=== PATIENT | female | born 1950 | race Caucasian/White ===

== ENCOUNTER → 2020-03-25 10:58 | Outpatient (REF) | payer MEDICARE, SELFPAY | LOC: HO.SL 10:58 | PROVIDERS: PCP Internal Medicine Medical Oncology; Visit Provider Internal Medicine Medical Oncology | DX: G47.10 Hypersomnia, unspecified (principal); R06.83 Snoring; R53.83 Other fatigue | CPT/HCPCS: 95806 ==

== ENCOUNTER → 2020-04-06 09:48 | Outpatient (BNVA) | payer MEDICARE, SELFPAY | PROVIDERS: PCP Internal Medicine Medical Oncology; Visit Provider Internal Medicine | DX: G47.33 Obstructive sleep apnea (adult) (pediatric) (principal) | CPT/HCPCS: 99202 ==

== ENCOUNTER → 2020-05-18 09:54 | Outpatient (BNVA) | payer MEDICARE, SELFPAY | PROVIDERS: PCP Internal Medicine Medical Oncology; Visit Provider Internal Medicine | DX: G47.33 Obstructive sleep apnea (adult) (pediatric) (principal); M26.19 Other specified anomalies of jaw-cranial base relationship; T78.3XXA Angioneurotic edema, initial encounter | CPT/HCPCS: 99212 ==

== ENCOUNTER 2020-05-27 16:31 | Outpatient (REF) | payer MEDICARE, SELFPAY | END 2020-05-27 16:32 | disposition home or self-care (01) | LOC: HO.LNP 16:31 | PROVIDERS: Visit Provider Internal Medicine Medical Oncology | DX: R07.0 Pain in throat (principal) | CPT/HCPCS: 87071 ==

== ENCOUNTER 2020-07-16 11:10 | Outpatient (REF) | payer MEDICARE, SELFPAY ==
[2020-07-16 11:41] LABS: Glucose Urine UA NEG (NEG); Leukocyte Esterase Urine 2+ (NEG); Nitrite Urine POS (NEG); Urine Blood 3+ (NEG); Urine Ketones NEG (NEG); Urine Protein TRACE MG/DL (NEG-TRACE)
[2020-07-16 11:46] LABS: Appearance Urine HAZY; Color Urine YELLOW
[2020-07-16 12:06] LABS: Bacteria Urine 1+ /LPF; Squamous Epithelial Cell Urine TRACE /LPF
== END 2020-07-16 11:11 | disposition home or self-care (01) ==
LOC: HO.LNP 11:10
PROVIDERS: Visit Provider Internal Medicine Medical Oncology
DX: N39.0 Urinary tract infection, site not specified (principal)
CPT/HCPCS: 81001; 87086

== ENCOUNTER 2020-08-08 13:13 | Emergency (ER) | payer MEDICARE, SELFPAY ==
[2020-08-08 14:00] VITALS: BP 142/65; PULSE 48; RESP 18; TEMP 36.6; O2SAT 100; BMI 20.1
--- NOTE | 2020-08-08 14:57 | ED.WOUNDLAC ---
HPI - Wound/Laceration General Chief Complaint: Wound/Laceration Stated Complaint: wound Time Seen by Provider: 08/08/20 14:57 History of Present Illness HPI narrative: Patient complains of cut to right pinky finger on a kitchen Skip, no numbness weakness or tingling Related Data Home Medications Medication Instructions Recorded Confirmed escitalopram oxalate 5 mg tablet 5 mg PO DAILY 04/06/20 methylphenidate HCl 20 mg tablet 10 mg PO TID 04/06/20 valacyclovir 500 mg tablet mg PO 04/06/20 Allergies Allergy/AdvReac Type Severity Reaction Status Date / Time Dust Allergy Unknown sneeze Uncoded 08/08/20 14:03 Enviornmental Allergy Unknown sneeze Uncoded 08/08/20 14:03 Review of Systems Review of Systems: Positive for right pinky laceration Negatives are no fever no chills no dizziness no fainting no numbness weakness or tingling no joint pains Yes all other systems are reviewed and are negative PMFSH Past Medical History Source: nursing notes reviewed Medical History (Updated 08/08/20 @ 16:37 by ELADIO Marquez) Angioneurotic edema LUCILLE (obstructive sleep apnea) Social History Social History Advance Directives: Yes Advance Directives Information Provided: Yes Advance Directives on File: No Physical Exam Vital Signs: Vital Signs: Last Vital Signs Temp 98 F 08/08/20 14:00 Pulse 55 08/08/20 15:03 Resp 14 08/08/20 15:03 BP 142/65 H 08/08/20 14:00 Pulse Ox 99 08/08/20 15:03 Body Mass Index 20.1 General appearance is no acute distress Head is normocephalic atraumatic Neck is supple Respiratory no distress Extremities the right pinky has a flap laceration that is 2 cm on the distal phalanx of the right pinky, sensation and motor function are normal, flexion and extension are normal no evidence of a tendon deficit, neurovascular intact Other extremities normal Neuro no gross motor or sensory deficits Course Course Course Narrative: Procedure note right 5th finger is cleansed and irrigated with normal saline Anesthesia is 6 cc of 1% lidocaine digital block No foreign body identified The wound is closed with 5 0 nylon sutures, 5 sutures Bleeding is controlled and dressing is applied Discharge Plan Discharge Clinical Impression: Laceration Patient Disposition: Home, Self-Care Additional Instructions: Stitches need to be removed in 7-10 days Return any time for redness swelling fever pain any sign of infection or any concerns You get a tetanus shot today Prescriptions: No Action valacyclovir 500 mg tablet PO RF: 0 methylphenidate HCl 20 mg tablet 10 mg PO TID RF: 0 escitalopram oxalate 5 mg tablet 5 mg PO DAILY RF: 0
[2020-08-08 15:03] VITALS: PULSE 55; RESP 14; O2SAT 99
[2020-08-08] MEDS: Diphth,Pertus(ACell),Tet Adult 0.5 ML SYRINGE IM (15:07)
[2020-08-08] MEDS: Lidocaine HCl 1 % MPF 5 ML VIAL SUBCUT ×2 (15:08)
== END 2020-08-08 16:56 | disposition home or self-care (01) ==
PROVIDERS: Emergency Provider Emergency Medicine
DX: S61.216A Laceration without foreign body of right little finger without damage to nail, initial encounter (principal); W27.8XXA Contact with other nonpowered hand tool, initial encounter; Y93.9 Activity, unspecified; Y92.9 Unspecified place or not applicable; Y99.9 Unspecified external cause status
CPT/HCPCS: 12001; 90471; 90715; 99283; 99284

== ENCOUNTER → 2020-09-06 14:26 | Outpatient (BNVA) | payer MEDICARE, SELFPAY | PROVIDERS: PCP Internal Medicine Medical Oncology; Visit Provider Internal Medicine | DX: G47.33 Obstructive sleep apnea (adult) (pediatric) (principal); G47.10 Hypersomnia, unspecified | CPT/HCPCS: 99212 ==

== ENCOUNTER → 2020-09-09 13:20 | Outpatient (BNVA) | payer MEDICARE, SELFPAY | PROVIDERS: PCP Internal Medicine Medical Oncology; Visit Provider Physician Assistant | DX: S46.219A Strain of muscle, fascia and tendon of other parts of biceps, unspecified arm, initial encounter (principal) | CPT/HCPCS: 99212 ==

== ENCOUNTER → 2020-09-23 12:50 | Outpatient (REF) | payer MEDICARE, SELFPAY | LOC: HO.SL 12:50 | PROVIDERS: Absent Provider Psychiatry & Neurology Psychiatry; PCP Internal Medicine Medical Oncology; Visit Provider Internal Medicine | DX: G47.10 Hypersomnia, unspecified (principal); G47.33 Obstructive sleep apnea (adult) (pediatric) | CPT/HCPCS: 95806 ==

== ENCOUNTER 2021-04-30 07:11 | Outpatient (REF) | payer MEDICARE, SELFPAY ==
[2021-04-30 08:43] LABS: Albumin Level 4.4 g/dL (3.5-5.0); Blood Urea Nitrogen 22 mg/dL (9-16); Calcium 11.1 mg/dL (8.4-10.2); Estimated Glomerular Filt Rate 56; Phosphorus 2.7 mg/dL (2.7-4.5)
[2021-04-30 08:52] LABS: Thyroid Stimulating Hormone 2.39 uIU/mL (0.32-4.0)
[2021-04-30 09:21] LABS: Vitamin D 25-OH Total 35.7 ng/mL (>30)
[2021-05-05 13:12] LABS: Calcium (PTHI) 10.9 mg/dL (8.6-10.4); PTHI 45 pg/mL (14-64)
== END 2021-04-30 07:12 | disposition home or self-care (01) ==
LOC: HO.LAB 07:11
PROVIDERS: Internal Medicine Endocrinology, Diabetes & Metabolism; Absent Provider Internal Medicine Medical Oncology; PCP Internal Medicine Medical Oncology; Visit Provider Internal Medicine Endocrinology, Diabetes & Metabolism
DX: E21.3 Hyperparathyroidism, unspecified (principal)
CPT/HCPCS: 36415; 82040; 82306; 82310; 82565; 83970; 84100; 84443; 84520

== ENCOUNTER → 2021-08-17 15:16 | Outpatient (BNVA) | payer MEDICARE, SELFPAY | PROVIDERS: PCP Internal Medicine Medical Oncology; Visit Provider Internal Medicine Endocrinology, Diabetes & Metabolism | DX: E21.0 Primary hyperparathyroidism (principal) | CPT/HCPCS: 99202 ==

== ENCOUNTER 2022-09-04 | Outpatient (REF) | payer MEDICARE, SELFPAY ==
[2022-09-04 16:52] LABS: CDiff Gene PCR NEGATIVE (Negative)
== END 2022-09-04 00:01 | disposition home or self-care (01) ==
LOC: HO.LAB
PROVIDERS: PCP Internal Medicine Medical Oncology; Visit Provider Internal Medicine Medical Oncology
DX: R19.7 Diarrhea, unspecified (principal)
CPT/HCPCS: 87177; 87209; 87493

== ENCOUNTER 2022-09-05 09:15 | Outpatient (REF) | payer MEDICARE, SELFPAY ==
[2022-09-05 11:24] LABS: Campylobacter Not Detected (Not Detect.); Plesiomonas shigelloides Not Detected (Not Detect.); Salmonella Not Detected (Not Detect.); Vibrio Not Detected (Not Detect.)
[2022-09-05 11:25] LABS: Adenovirus F 40/41 Not Detected (Not Detect.); Astrovirus Not Detected (Not Detect.); Cryptosporidium Not Detected (Not Detect.); Cyclospora cayetanensis Not Detected (Not Detect.); E. coli EAEC Not Detected (Not Detect.); E. coli EPEC Not Detected (Not Detect.); E. coli ETEC Not Detected (Not Detect.); E. coli STEC Not Detected (Not Detect.); Entamoeba histolytica Not Detected (Not Detect.); Giardia lamblia Not Detected (Not Detect.); Norovirus GI/GII Not Detected (Not Detect.); Rotavirus A Not Detected (Not Detect.); Sapovirus Not Detected (Not Detect.); Shigella sp./EIEC Not Detected (Not Detect.); Vibrio Cholerae Not Detected (Not Detect.); Yersinia enterocolitica Not Detected (Not Detect.)
== END 2022-09-05 09:16 | disposition home or self-care (01) ==
LOC: HO.LNP 09:15
PROVIDERS: Visit Provider Internal Medicine Medical Oncology
DX: R19.7 Diarrhea, unspecified (principal)
CPT/HCPCS: 87177; 87209; 87507

== ENCOUNTER 2022-09-11 14:00 | Outpatient (REF) | payer MEDICARE, SELFPAY ==
[2022-09-11 14:12] LABS: MANUAL DIFF FLAG NO
[2022-09-11 14:26] LABS: Basophils Percent Auto 0.4 % (0-2); Eosinophils Percent Auto 0.3 % (0-4); Hematocrit 43.6 % (37.0-47.0); Hemoglobin 14.3 g/dl (12.0-16.0); Imm Gran Abs Auto 0.02 X10*3/uL (0.00-0.03); Imm Gran Pct Auto 0.3 % (0.0-0.4); Lymphocytes Absolute Auto 1.9 X10*3/uL (1.2-4.9); Lymphocytes Percent Auto 27.1 % (20-40); Mean Corpuscular HGB Conc 32.8 g/dl (31.0-35.0); Mean Corpuscular Volume 106.9 fL (80.0-98.0); Mean Platelet Volume 10.5 fL (9.4-12.3); Monocytes Absolute Auto 0.5 X10*3/uL (0.1-1.2); Monocytes Percent Auto 7.5 % (2-11); Neutrophils Absolute Auto 4.6 x10*3/uL (2.0-8.3); Neutrophils Percent Auto 64.4 % (45-73); Platelet Count 234 X10*3/uL (160-400); Red Blood Count 4.08 X10*6/uL (4.20-5.50); White Blood Count 7.2 X10*3/uL (4.8-10.8)
[2022-09-11 15:05] LABS: Alanine Aminotransferase 46 U/L (0-31); Albumin Level 4.3 g/dL (3.5-5.0); Alkaline Phosphatase 107 U/L (39-117); Aspartate Amino Transferase 45 U/L (5-31); Bilirubin Direct 0.1 mg/dL (0.0-0.5); Bilirubin Total 0.4 mg/dL (0.0-1.0); Total Protein 7.3 g/dL (6.5-8.0)
[2022-09-11 15:12] LABS: TSH reflex Free T4 1.71 uIU/mL (0.32-4.0)
== END 2022-09-11 14:01 | disposition home or self-care (01) ==
LOC: HO.LAB 14:00
PROVIDERS: PCP Internal Medicine Medical Oncology; Visit Provider Internal Medicine Gastroenterology
DX: R19.7 Diarrhea, unspecified (principal)
CPT/HCPCS: 36415; 80076; 84443; 85025

== ENCOUNTER 2022-10-04 09:13 | Outpatient (REF) | payer MEDICARE, SELFPAY ==
--- NOTE | ~2022-10-04 | US_ITS ---
EXAMINATION: US ABDOMEN COMPLETE CLINICAL INFORMATION: Abnormal results of liver function studies. COMPARISON: Ultrasound abdomen complete 12/12/2018. TECHNIQUE: Real-time imaging of the abdominal viscera. FINDINGS: PANCREAS: Normal. ABDOMINAL AORTA: The proximal, mid, and distal segments are normal in caliber. Mild atherosclerotic plaque is seen within the distal abdominal aorta. INFERIOR VENA CAVA: Visualized portions are normal. LIVER: Normal. The liver is normal in size. The liver contour is normal. Parenchymal echogenicity is normal. No focal hepatic lesion. There is no intrahepatic biliary duct dilatation seen. GALLBLADDER: Normal. The gallbladder is physiologically distended without evidence of stones, sludge, polyps, wall thickening or pericholecystic fluid. COMMON BILE DUCT: Normal in caliber measuring 0.3 cm in diameter. RIGHT KIDNEY: Normal. No hydronephrosis. No renal calculi or focal parenchymal lesions. The kidney measures 9.0 cm in maximum dimension. LEFT KIDNEY: Normal. No hydronephrosis. No renal calculi or focal parenchymal lesions. The kidney measures 9.7 cm in maximum dimension. SPLEEN: Normal. The spleen measures 7.0 cm in maximum dimension. FREE FLUID: None. US/US abdomen complete IMPRESSION: Mild atherosclerotic plaque is seen within the distal abdominal aorta. No other significant finding.
== END 2022-10-04 09:14 | disposition home or self-care (01) ==
LOC: HO.US 09:13
PROVIDERS: PCP Internal Medicine Medical Oncology; Visit Provider Internal Medicine Gastroenterology
DX: R94.5 Abnormal results of liver function studies (principal)
CPT/HCPCS: 76700

== ENCOUNTER 2022-10-25 12:09 | Day surgery (SDC) | payer MEDICARE, SELFPAY ==
--- NOTE | 2022-10-24 10:38 | HO.ANESPROP2 ---
Documented by User: Felicitas Everett NP 10/24/22 10:39 HPI - Anesthesia Eval Consult details Narrative: 72yo F for Colonoscopy PMFSH Active Problems Active Problems: All Active Problems (Updated 08/17/21 @ 15:32 by Berta Moore Vane) Biceps strain (Acute) Hypersomnolence (Acute) Angioneurotic edema (Acute) LUCILLE (obstructive sleep apnea) (Acute) Past Medical History Medical History Angioneurotic edema Hypersomnolence LUCILLE (obstructive sleep apnea) Family History Family History Mother Dementia Father Oral cancer Surgical History Surgical History History of parathyroid surgery Hx of cataract surgery Social History Social History Patient Tobacco Use Status: Never used Tobacco Advance Directives: No Advance Directives Information Provided: Yes Current occupational status: retired Current occupation: rt handed Meds Allergies Allergy/AdvReac Type Severity Reaction Status Date / Time No Known Drug Allergies Allergy Unknown Unknown Verified 08/17/21 15:41 Dust Allergy Unknown sneeze Uncoded 08/08/20 14:03 Enviornmental Allergy Unknown sneeze Uncoded 08/08/20 14:03 Home Medications Medication Instructions Recorded Confirmed Last Taken Type escitalopram oxalate 5 mg tablet 5 mg PO DAILY 04/06/20 Unknown History valacyclovir 500 mg tablet mg PO 04/06/20 Unknown History methylphenidate HCl 20 mg tablet mg PO 08/17/21 Unknown History Exam Exam Date and Time: October 24, 2022 1038 Assessment and Plan Assessment Anesthesia Assessment: Chart Reviewed Documented by User: Tiera Samuel MD 10/25/22 13:18 PMFSH Past Medical History Medical History Angioneurotic edema Hypersomnolence LUCILLE (obstructive sleep apnea) Family History Family History Mother Dementia Father Oral cancer Surgical History Surgical History History of parathyroid surgery Hx of cataract surgery History of Problems with Anesthesia: No Social History Social History Patient Tobacco Use Status: Never used Tobacco Advance Directives: No Advance Directives Information Provided: Yes Current occupational status: retired Current occupation: rt handed Meds Allergies Allergy/AdvReac Type Severity Reaction Status Date / Time No Known Drug Allergies Allergy Unknown Unknown Verified 08/17/21 15:41 Dust Allergy Unknown sneeze Uncoded 08/08/20 14:03 Enviornmental Allergy Unknown sneeze Uncoded 08/08/20 14:03 Home Medications Medication Instructions Recorded Confirmed Last Taken Type escitalopram oxalate 5 mg tablet 5 mg PO DAILY 04/06/20 Unknown History valacyclovir 500 mg tablet mg PO 04/06/20 Unknown History methylphenidate HCl 20 mg tablet mg PO 08/17/21 Unknown History Exam Airway Mallampati Class: II TM Dist: >3cm Neck ROM: Full Loose/Missing/Broken Teeth: No Heart: RRR Lungs: CTA Assessment and Plan Assessment Anesthesia Assessment: Anesthesia Plan Discussed Final Anesthetic Review History of Problems with Anesthesia: No NPO: Yes ASA Class: III Final Preanesthetic Review: Meds/Allgs Chart Reviewed, Consent Obtained/Reviewed and Anes Risks/Benef Reviewed Patient Risk: Intermediate Procedure Risk: Low Anesthetic Plan Anesthetic Plan: MAC: Disposition: Standard PACU
[2022-10-25 13:14] VITALS: BMI 18.5
[2022-10-25 13:22] VITALS: BP 124/70; PULSE 58; RESP 16; TEMP 36.8; O2SAT 100
[2022-10-25] MEDS: Lactated Ringers 1,000 ML 100 ML IVCONT (13:39)
--- NOTE | 2022-10-25 13:52 | MHC.SHP ---
Pre-Procedural Eval Section A Date of Service: 10/25/22 Section B Chief Complaint: Diarrhea, unspecified Details of Present Illness: see H&P no changes Relevant Family History (Specify if Yes): No Relevant Social History: None Present Medications: see Short Stay Collaborative assessment Medical History: No relevant PMH History of Previous Operations: No relevant previous surgery Allergies: Allergies Allergy/AdvReac Type Severity Reaction Status Date / Time No Known Drug Allergies Allergy Unknown Unknown Verified 08/17/21 15:41 Dust Allergy Unknown sneeze Uncoded 08/08/20 14:03 Enviornmental Allergy Unknown sneeze Uncoded 08/08/20 14:03 Review of Systems Sugical H&P ROS: Negative: Constitution, Cardiovascular, Respiratory, Neurological, Psychiatric, Hem-Onc, Allergic/Immunologic, Gastrointestinal, Genitourinary, Musculoskeletal, Integumentary, Endocrine and Eyes/Ears/Nose/Throat Exam Surgical H&P Exam: Normal: HEENT, Normal: Heart, Normal: Lungs, Normal: Extremities, Normal: Abdomen, Normal: Skin and Normal: Neurological Plan Diagnosis/Plan: Unchanged I have reviewed the history and physical and performed a pertinent physical examination on my patient. No changes have occurred unless specified. Time Spent With Patient Time: Total time managing care of this patient today ____ minutes.
[2022-10-25 14:40] VITALS: BP 95/60; PULSE 52; RESP 16; TEMP 36.2; O2SAT 100
--- NOTE | 2022-10-25 14:44 | P.BOP_ITS ---
Brief Operative Note Date of Service: 10/25/22 Pre-op diagnosis: diarrhea Post-op diagnosis: same Surgeon: Oz Fitzpatrick Anesthesia: MAC Was an Structural Steel Erection Supervisor used for this Procedure?: No Estimated blood loss (mL): 3 Pathology: other Condition: stable Disposition: PACU
[2022-10-25 14:55] VITALS: BP 119/65; PULSE 51; RESP 18; TEMP 36.8; O2SAT 98
--- NOTE | 2022-10-25 17:38 | OP_ITS ---
DATE OF SERVICE: 10/25/2022 SURGEON: Oz Fitzpatrick MD INDICATIONS: Diarrhea. PREOPERATIVE DIAGNOSIS: POSTOPERATIVE DIAGNOSIS: PROCEDURE PERFORMED: ESTIMATED BLOOD LOSS: COMPLICATIONS: ANESTHESIA: ASSISTANTS: SPECIMENS: PROCEDURE: Colonoscopy to the terminal ileum with biopsy. MEDICATIONS: Monitored anesthesia care. DESCRIPTION OF PROCEDURE: A history and physical was performed. The risks and benefits of the procedure were explained to the patient. Informed consent was obtained. The patient was placed in the left lateral decubitus position. A digital rectal exam was performed and was found to be normal. The Olympus pediatric video colonoscope was introduced into the rectum and advanced to the cecum. The cecum was identified by transillumination, palpation, and identification of ileocecal valve. Examination was performed. The scope was removed. She tolerated the procedure well and was returned to recovery area in stable condition. FINDINGS: The terminal ileum was briefly examined and appeared normal. Biopsies were obtained. The visualized colonic mucosa was within normal limits without evidence of masses, ulcers, or polyps. There was some liquid stool, which was washed and suctioned as best possible. This limited the sensitivity examination for detection of small polyps. No polyps were identified. There was no evidence of colitis. Biopsies were obtained from the terminal ileum, right colon and sigmoid. Retroflexed examination showed moderate-sized internal hemorrhoids. IMPRESSION: Normal colonoscopy. RECOMMENDATIONS: 1. Follow up the biopsy results. 2. Repeat colonoscopy is recommended in 10 years for average risk individuals. This is optional based on age. MD CHONG Gant/ARISTEO / [id number]
== END 2022-10-25 15:15 | disposition home or self-care (01) ==
PROVIDERS: PCP Internal Medicine Medical Oncology; Visit Provider Internal Medicine Gastroenterology
PROC: 0DJD8ZZ Inspection of Lower Intestinal Tract, Via Natural or Artificial Opening Endoscopic (ICD-10-PCS; CPT 45378; principal; 2022-10-25 13:30)
DX: K52.831 Collagenous colitis (principal); R53.83 Other fatigue; N32.89 Other specified disorders of bladder; G47.33 Obstructive sleep apnea (adult) (pediatric); Z79.899 Other long term (current) drug therapy
CPT/HCPCS: 45380; 88305

== ENCOUNTER 2023-09-04 13:39 | Outpatient (REF) | payer MEDICARE, SELFPAY ==
--- NOTE | ~2023-09-04 | MM_ITS ---
EXAMINATION: BONE DENSITOMETRY CLINICAL INDICATION: Age-related osteoporosis without current pathological fracture. COMPARISON: Baseline BD dated 01/27/2009. TECHNIQUE: Using a DreamFace Interactive DXA System (software version: 13.1) manufactured by [employer], dual-energy x-ray absorptiometry was performed of the lumbar spine and left hip. The images are of good technical quality. Summary results are attached. FINDINGS: LEFT FEMUR, NECK: Current: BMD 0.776 g/cm2, Z-score -0.1, T-score -1.9, osteopenia. Baseline: BMD 0.940 g/cm2. LEFT FEMUR, TOTAL: Current: BMD 0.814 g/cm2, Z-score 0.0, T-score -1.5, osteopenia, 17.7% decrease from baseline (<5% change is not significant). Baseline: BMD 0.989 g/cm2. AP SPINE L1-L4: Current: BMD 1.096 g/cm2, Z-score 1.0, T-score -0.7, normal, 6.6% decrease from baseline (<5% change is not significant). Baseline: BMD 1.173 g/cm2. IDENTIFIED RISK FACTORS: Menopause. HISTORY OF FRACTURE: None listed. MEDICATIONS: Multivitamin. MM/XR DEXA axial skeleton IMPRESSION: 1. DIAGNOSIS: Osteopenia based on the lowest T-score value of -1.9 in the femoral neck applying World Health Organization criteria. 2. 10-YEAR FRACTURE RISK PREDICTION, FRAX: Major osteoporotic fracture (clinical spine, forearm, hip or shoulder) 10.9%. Hip fracture 2.2%. 3. Treatment Recommendations: NOF guidelines recommend consideration for treatment in postmenopausal women and men age 50 and older presenting with the following: -A hip or vertebral (clinical or morphometric) fracture. -T-score less than or equal to -2.5 at the femoral neck or spine after appropriate evaluation to exclude secondary causes. -Low bone mass at the hip or spine and a 10-year fracture probability by FRAX of greater than or equal to 3% for hip fracture or greater than or equal to 20% for major osteoporotic fracture based on the [place] adapted WHO algorithm. 4. Other Recommendations: All treatment decisions require clinical judgment and consideration of individual patient factors, including patient preferences, comorbidities, previous drug use, risk factors not captured in the FRAX model (e.g. frailty, falls, vitamin D deficiency, increased bone turnover, interval significant decline in bone density) and possible under or overestimation of fracture risk by FRAX. Additional medical evaluation for secondary cause of low bone mineral density may be appropriate. FUTURE SCAN RECOMMENDATION: People with diagnosed cases of osteoporosis or at high risk for fracture should have regular bone mineral density tests. For patients eligible for Medicare, routine testing is allowed once every 2 years. The testing frequency can be increased to one year for patients who have rapidly progressing disease, those who are receiving or discontinuing medical therapy to restore bone mass, or have additional risk factors.
== END 2023-09-04 13:40 | disposition home or self-care (01) ==
LOC: HO.MAMMO 13:39
PROVIDERS: PCP Internal Medicine Medical Oncology; Visit Provider Internal Medicine Medical Oncology
DX: M81.0 Age-related osteoporosis without current pathological fracture (principal); Z78.0 Asymptomatic menopausal state
CPT/HCPCS: 77080

== ENCOUNTER 2024-05-12 12:19 | Outpatient (REF) | payer MEDICARE, SELFPAY ==
[2024-05-12 13:09] LABS: MANUAL DIFF FLAG NO
[2024-05-12 13:15] LABS: Basophils Percent Auto 0.5 % (0-2); Eosinophils Percent Auto 0.5 % (0-4); Hematocrit 41.6 % (37.0-47.0); Hemoglobin 14.2 g/dl (12.0-16.0); Imm Gran Abs Auto 0.01 X10*3/uL (0.00-0.03); Imm Gran Pct Auto 0.2 % (0.0-0.4); Immature Retic Fraction 11.7 % (3.0-15.9); Lymphocytes Absolute Auto 1.8 X10*3/uL (1.2-4.9); Lymphocytes Percent Auto 30.1 % (20-40); Mean Corpuscular HGB Conc 34.1 g/dl (31.0-35.0); Mean Corpuscular Hemoglobin 36.7 pg (27.0-33.0); Mean Corpuscular Volume 107.5 fL (80.0-98.0); Mean Platelet Volume 11.2 fL (9.4-12.3); Monocytes Absolute Auto 0.5 X10*3/uL (0.1-1.2); Monocytes Percent Auto 8.3 % (2-11); Neutrophils Absolute Auto 3.7 x10*3/uL (2.0-8.3); Neutrophils Percent Auto 60.4 % (45-73); Platelet Count 196 X10*3/uL (160-400); Red Blood Count 3.87 X10*6/uL (4.20-5.50); Red Cell Distribution Width 13.3 % (11.0-16.0); Retic HGB Equivalent 38.4 pg (30.0-35.0); Reticulocyte Percent 1.6 % (0.5-1.8); Reticulocytes Absolute 0.064 X10*6/uL (0.026-0.095); White Blood Count 6.1 X10*3/uL (4.8-10.8)
[2024-05-12 13:28] LABS: Alanine Aminotransferase 60 U/L (0-31); Albumin Level 4.5 g/dL (3.5-5.0); Alkaline Phosphatase 74 U/L (39-117); Anion Gap 10 (12-20); Aspartate Amino Transferase 62 U/L (5-31); Bilirubin Total 0.4 mg/dL (0.0-1.0); Blood Urea Nitrogen 23 mg/dL (9-16); Calcium 9.3 mg/dL (8.4-10.2); Carbon Dioxide 30 mmol/L (22-29); Chloride 101 mmol/L (96-108); Estimated Glomerular Filt Rate 56; Glucose Random 90 mg/dL (60-115); Potassium 3.4 mmol/L (3.3-5.1); Sodium 138 mmol/L (135-145); Total Protein 7.5 g/dL (6.5-8.0)
[2024-05-12 14:01] LABS: Folate 19.3 ng/mL (> or = 4.0)
== END 2024-05-12 12:20 | disposition home or self-care (01) ==
LOC: HO.10HDL 12:19
PROVIDERS: Visit Provider Internal Medicine Medical Oncology
DX: R63.6 Underweight (principal); R53.82 Chronic fatigue, unspecified; D75.89 Other specified diseases of blood and blood-forming organs
CPT/HCPCS: 36415; 80053; 82746; 85025; 85045

== ENCOUNTER → 2024-07-08 08:17 | Outpatient (RCR) | payer MEDICARE, SELFPAY ==
--- NOTE | 2019-11-28 10:41 | MHC.PT.DC ---
[facility] [place] [facility] [place] [facility] [place] Office [address] Brianda Treviño [address] [phone] F: [phone] F: [phone] F: [phone] F: [phone] Physical Therapy Discharge Report Diagnosis: Tendinitis of R rotator cuff Date of Surgery: NA Date of Evaluation: 10/14/19 Date of Discharge: 11/28/19 Treatments to Date: 14 Cancellations to Date: 0 No Shows to Date: 0 Discharge Status: Achieved Goals Improved Function Independent with HEP Discharge Summary: Patient has been doing well, very I in her HEP. She reports ready for DC next session. Does not have any increase in pain with exercises. Demos an improvement in posture and scapular stability and awareness. She demos WFL shoulder ROM and strength. R shoulder AROM: flexion 165, abduction 175, ER 80 degs in 90 degs abduction, IR 80 degs in 90 degs abduction. SPADI improved o 14/50 on pain scale and 2/80 on disability. DC to HEP. Please sign and return to therapist. Thank you for your referral.
== END | disposition home or self-care (01) ==
LOC: HO.PTCHIC 11-21 10:02
PROVIDERS: PCP Internal Medicine Medical Oncology; Visit Provider Physician Assistant
DX: M75.81 Other shoulder lesions, right shoulder (principal)
CPT/HCPCS: 97110

== ENCOUNTER 2025-01-13 14:31 | Outpatient (AMB) | payer MEDICARE, SELFPAY ==
--- OUTSIDE RECORDS SUMMARY | 2023-07-26 05:00 | XMS_ITS ---
Author Organization Harvinder Moscoso III, MD Address [address] [place] [address] Care Team Providers Care Lump Inspector Name Role Phone Dr. Harvinder Moscoso III Primary Care Provider Allergies Allergen (clinical drug ingredient) Drug/Non Drug Allergy documented on EMR Reaction Allergy Type Onset Date Status Dust Mites Unknown Allergy Active REASON FOR VISIT Macrocytosis, Hyperlipidemia, Underweight, Depression, Hyper parathyroidism, Sleep apnea, Osteoporosis Medications Medication SIG (Take, Route, Fr equency, Duration) Notes Start Date End Date Status Calcium 1 tab Oral Active valACYclovir HCl 500 MG 1 tablet Orally Once a day 05/09/2022 Active Social History Tobacco Use: Social History Observation Description Date Details (start date - stop date) Former Smoker NA - NA Sex Assigned At : Social History Observation Description Sex Assigned At Female Tobacco Use/Smoking Question Answer Notes Patient is a former smoker How long has it been since you last smoked? > 10 years Additional Findings: Tobacco Non-User Ex-cigaret te smoker Problems Problem Type SNOMED Code ICD Code Onset Dates Problem Status W/U Status Risk Notes Problem Osteoporosis (27562049) Osteoporosis, unspecified (M81.0) Active confirmed She is being treated. A bone density test will be done periodical ly. Vital Signs Temperature 97.2 degrees Fahrenheit 07/26/19 24 Blood pressure systolic 133 mm Hg 07/26/19 24 Blood pressure diastolic 73 mm Hg 024 Heart Rate 63 /min 07/26/2023 Height 67 in 07/26/2023 Weight 120 lbs 07/26/2023 BMI 18.79 kg/m2 07/26/2023 Encounters Encounter Location Date Provider Diagnosis Harvinder Moscoso III, MD [address] [place] [address] [place] [address] 07/26/2023 Harvinder Moscoso Underweight R63.6 ; Hyperparathyroidism E21.3 ; Osteoporosis, unspecified M81.0 ; Cervical nerve root impingement G54.2 ; Chronic insomnia F51.04 ; Macrocytosis D75.89 ; Allergic rhinitis, unspecified J30.9 and Former smoker Z87.891 Assessments Encounter Date Diagnosis (ICD Code) Assessment Notes T reatment Notes Treatment Clinical Notes 07/26/2023 Underweight (ICD-10 - R63.6) She has gained 2 pounds. Her nutritional status is good. She reports a good appetite. I urged her to continue the weight gain until about a mass index is 20. 07/26/2023 Hyperparathyroidism (ICD-10 - E21.3) No blood work is available. She is asymptomatic. She remains under the care of endocrinology. 07/26/2023 Osteoporosis, unspec ified (ICD-10 - M81.0) She has been compliant with her regimen and denies bone pain. Her bone density is being done periodically. 07/26/2023 Cervical nerve root impingement (ICD-10 - G54.2) She denies any recent neck pain and is doing quite well. She has occasional pain with turning her neck but no radiation. Observation continues. 07/26/2023 Chronic insomnia (IC D-10 - F51.04) He wondered if medication would help and I suggested either tramadol or an antihistamine. She said she would consider these. In general, her insomnia has improved. 07/26/2023 Macrocytosis (ICD-10 - D75.89) A CBC has been ordered prior to her next visit. 07/26/2023 Allergic rhinitis, unspecified (ICD-10 - J30.9) Her rhinitis has been stable and well controlled with occasional use a medication. She has had no complaints about this since last spring. 07/26/2023 Former smoker (ICD-1 0 - Z87.891) She is highly motivated not to smoke and she has a plan for prevention of relapse in times of illness or stress. Plan Of Treatment Medication Medication Name Sig Start Date Stop Date Notes Calcium 1 tab Oral valACYclovir HCl 500 MG 1 tablet Orally Once a day 023 Pending Test Test Name Order Date PROFILE, FASTING (COMPREHENSIVE METABOLI C) 07/26/2023 CBC WITH AUTO DIFF 07/26/2023 Lipid Panel 07/26/2023 Parathyroid Hormone Intact 07/26/2023 Next Appt Details Follow Up: As Scheduled, Casandra son: OV, Annual Exam Provider Name:Harvinder Moscoso , 11/24/2025 02:00:00 PM, [address] [place] [address], [address], [id number], Progress Notes * BELLANicoleOB:1950 (73 yo F)Acc No.[id number]:07/26/2023 Progress Notes Patient: Jess Bernal Provider: Patti Moscoso MD :1950 A ge:73 Y S ex:Female Date:07/26/2023 Address:[address] [place] [address] [id number] Subjective: * Chief Complaints: * M acrocytosisHyperlipidemiaUnderweightDepressionHyper parathyroidismSleep apneaOsteoporosis * HPI: C OVID-19 Screening: She returns for a scheduled visit to manage her health status in view of numerous medical issues. She has gained 2 pounds. Her nutritional status seems good. Her insomnia and chronic fatigue are improved. She has no new problems. There is no recent blood work available. Questions H ave you experienced fever, chills, cough, sore throat, shortness of breath, difficulty breathing, muscle aches, loss of taste or smell? N o H ave you been exposed to the virus within the last 10 days? N o H ave you travelled internationally in the last 10 days? N o H ave you been exposed to COVID-19 in the past? N o * ROS: G eneral/Constitutional: pain o nly normal aches and pains. C hills d enies.?Fatigue a dmits. F ever d enies. E NT: Decreased hearing d enies. R espiratory: Cough d enies. C ardiovascular: Chest pain with exertion d enies. D yspnea on exertion?denies. S hortness of breath d enies. G astrointestinal: Constipation o ccasional. D ecreased appetite d enies. D iarrhea d enies. H eartburn d enies. N ausea d enies. R ectal bleeding d enies. V omiting d enies. H ematology: bruising d enies. p etechiae d enies. S wollen glands n one have been noted. G enitourinary: Frequent urination a t night. M usculoskeletal: Muscle aches d enies. P ainful joints d enies. S ciatica d enies. W eakness d enies. S kin: Itching d enies. R aurora d enies. S kin lesion(s)?denies. N eurologic: Difficulty speaking d enies. D izziness d enies.?Headache d enies. L ow back pain d enies. P sychiatric: Depressed mood d enies. * Medical History: * Surgical History: E xcision of 2cm lipoma, right flank [id number] x2 [id number] 10/25/22 * Hospitalization/Major Diagno stic Procedure: D enies Past Hospitalization * Family History: F ather: 85 yrs, mouth cancer. M other: 90 yrs, alzheimer. M aternal aunt: 80 yrs, breast cancer. 1 sister(s) - healthy. . She has no children. * Social History: T obacco Use: T obacco Use/Smoking P atient is a f ormer smoker H ow long has it been since you last smoked??> 10 years A dditional Findings: Tobacco Non-User E x-cigarette smoker S he was born in [place], [place]. 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 * Medications: T akingCalcium 1 tab Oral valACYclovir HCl 500 MG Tablet 1 tablet Orally Once a day, stop date 05/05/2024Medication List reviewed and reconciled with the patientTaking Calcium 1 tab Oral Taking valACYclovir HCl 500 MG Tablet 1 tablet Orally Once a day, stop date 05/05/2024Medication List reviewed and reconciled with the patient * Allergies: D ust Mitesno[Allergies Verified] Objective: * Vitals: H t: 67, Wt:120, BMI:18.79, BP:133/73, HR:63, Temp:97.2, Wt-k.43. * Examination: G eneral Examination: GENERAL APPEARANCE: p leasant, well nourished, well developed, in no acute distress, calm and relaxed , underweight , woman. HEAD: a traumatic, normocephalic. EYES: e kin, perrla, anicteric, conjugate. EARS: n ormal. NOSE: s eptum intact. ORAL CAVITY: n ormal, unremarkable. NECK/THYROID: n o jugular venous distention, no carotid bruit, thyroid Not palpable. LYMPH NODES: n o enlarged lymph nodes,spleen normal. SKIN: n o suspicious lesions, anicteric. HEART: n o clicks, gallops, murmurs, or rubs, regular rhythm, S1, S2 normal, no s3, or vascular bruits. LUNGS: c lear to auscultation . BREASTS: n ot examined. ABDOMEN: b owel sounds normal, no ascites, no organomegaly, no mass. RECTAL EXAM: n ot examined. MUSCULOSKELETAL: e xtremities unremarkable, no clubbing, cyanosis or edema. PERIPHERAL PULSES: n ormal. NEUROLOGIC: a lert and oriented, cranial nerves 2-12 grossly intact, deep tendon reflexes 2+ symmetrical, motor strength normal upper and lower extremities, sensory exam intact. PSYCH: a lert, oriented. Assessment: * Assessment: 1. U nderweight - R63.6 (Primary), She has gained 2 pounds. Her nutritional status is good. She reports a good appetite. I urged her to continue the weight gain until about a mass index is 20. 2. H yperparathyroidism - E21.3, No blood work is available. She is asymptomatic. She remains under the care of endocrinology. 3 . O steoporosis, unspecified - M81.0, She has been compliant with her regimen and denies bone pain. Her bone density is being done periodically. 4 .?Cervical nerve root impingement - G54.2, She denies any recent neck pain and is doing quite well. She has occasional pain with turning her neck but no radiation. Observation continues. 5 . C hronic insomnia - F51.04, He wondered if medication would help and I suggested either tramadol or an antihistamine. She said she would consider these. In general, her insomnia has improved. 6 .?Macrocytosis - D75.89, A CBC has been ordered prior to her next visit. 7 . A llergic rhinitis, unspecified - J30.9, Her rhinitis has been stable and well controlled with occasional use a medication. She has had no complaints about this since last spring. 8 . F ormer smoker - Z87.891, She is highly motivated not to smoke and she has a plan for prevention of relapse in times of illness or stress. Plan: * Treatment: 2. H yperparathyroidism L AB: PROFILE, FASTING (COMPREHENSIVE METABOLIC) L AB: CBC WITH AUTO DIFF L AB: Lipid Panel L AB: Parathyroid Hormone Intact 3. O steoporosis, unspecified I maging: BONE DENSITY DEXA 4. O thers Continue valACYclovir HCl Tablet, 500 MG, 1 tablet, Orally, Once a day; C ontinue Calcium, 1 tab, Oral. * Procedure Codes: * Preventive Medicine: Counseling: C are goal follow-up plan: Counseling for abnormal BMI given Y es Below Normal BMI Follow-up D ietary education for weight gain, Dietary management education, guidance, and counseling, Feeding regime, Lifestyle education regarding diet, Nutrition / feeding management, Prescribed diet education, Special diet education, Intervention, Order not done: Medical or Other reason not done S moking/Tobacco Use Patient counseled on the dangers of tobacco use and urged to quit. 0 07/26/2023 * Follow Up: A s Scheduled (Reason: OV, Annual Exam) * Images: * Sign off status: Completed true * Provider: Patti Moscoso MD Date: 0 07/26/2023 Generated for Mukund aguiar/Amy/eTransmitting on: 1 03/15/2024 06:25 PM EST History and Physical Notes * HPI (History of Present Illness) Category Sub-Category Detail Notes COVID-19 Screening Questions Have you had any new onset fever, chills, cough, congestion, sore throat, shortness of breath, muscle aches?: No Have you been exposed to the virus withi n the last 10 days?: No Have you travelled internationally in [facility] last 10 days?: No Have you been exposed to COVID-19 in the past?: No Examination Category Sub-Category Detail Notes General Examination GENERAL APPEARANCE: pleasant , well nourished, well developed, in no acute distress, calm and relaxed , underweight , woman HEAD: atraumatic, normocep halic EYES: eomi, perrla, anicte duran, conjugate EARS: normal NOSE: septum intact NECK/THYROID: no jugular venous di stention, no carotid bruit, thyroid Not palpable HEART: no clicks, gallops, murmurs, or rubs, regular rhythm, S1, S2 normal, no s3, or vascular bruits LUNGS: clear to auscultatio n ABDOMEN: bowel sounds normal, no ascites, no organomegaly, no mass NEUROLOGIC: alert and oriented, cranial nerves 2-12 grossly intact, deep tendon reflexes 2+ symmetrical, motor strength normal upper and lower extremities, sensory exam intact SKIN: no suspicious lesion s, anicteric PERIPHERAL PULSES: normal BREASTS: not examined MUSCULOSKELETAL: extremities unremark able, no clubbing, cyanosis or edema LYMPH NODES: no enlarged lymph no jorge a,spleen normal RECTAL EXAM: not examined PSYCH: alert, oriented ORAL CAVITY: normal, unremarkable
--- OUTSIDE RECORDS SUMMARY | 2023-11-20 09:00 | XMS_ITS ---
Author Organization Harvinder Moscoso III, MD Address [address] [place] [address] Care Team Providers Care Biodiesel Production Associate Name Role Phone Dr. Harvinder Moscoso III Primary Care Provider Allergies Allergen (clinical drug ingredient) Drug/Non Drug Allergy documented on EMR Reaction Allergy Type Onset Date Status Ragweed Unknown Allergy Active Dust Mites Unknown Allergy Active Grass Mix Pollens Allergen Ext Unknown Drug Allergy Active Results Component Value Reference Range Notes URINE DIP STICK Reviewed date:11/20/2023 03:05:17 PM Interpretation: Performing Lab: Notes/Report: SG 1.005 1.005 - 1.025 pH 7.0 5.0 - 9.0 LUIS MANUEL Negative Negative - NIT Negative Negative - PRO Negative Negative - Trace GLU Negative Negative - KET Negative Negative - UBG Negative 0.1 - 1.8 TYRESE Negative 0.2 - 1.3 BLD Negative Negative - REASON FOR VISIT Annual Exam Medications Medication SIG (Take, Route, Fr equency, Duration) Notes Start Date End Date Status valACYclovir HCl 500 MG 1 tablet Orally Once a day 05/09/2022 Active Multivitamin - 1 tablet Orally Once a day Active Calcium 1 tab Oral Active Social History Tobacco Use: Social History Observation Description Date Details (start date - stop date) Never Smoker NA - NA Sex Assigned At : Social History Observation Description Sex Assigned At Female Tobacco Use/Smoking Question Answer Notes Patient is a former smoker How long has it been since you last smoked? > 10 years Additional Findings: Tobacco Non-User Ex-cigaret te smoker Tobacco Control (Standard) Question Answer Notes Tobacco use: Nonsmoker Additional Findings: Tobacco non-user Aggressive nonsmoker AUDIT-C (Standard) Question Answer Notes Did you have a drink containing alcohol in the p ast year? No Points 0 Interpretation Negative Vital Signs Temperature 98.8 degrees Fahrenheit 11/20/19 24 Blood pressure systolic 115 mm Hg 11/20/19 24 Blood pressure diastolic 71 mm Hg 024 Heart Rate 77 /min 11/20/2023 Height 67 in 11/20/2023 Weight 120 lbs 11/20/2023 BMI 18.79 kg/m2 11/20/2023 Encounters Encounter Location Date Provider Diagnosis Harvinder Moscoso III, MD [address] [place] [address] [place] [address] 11/20/2023 Harvinder Moscoso Underweight R63.6 ; Chronic fatigue R53.82 ; Macrocytosis D75.89 ; Former smoker Z87.891 ; Chronic insomnia F51.04 ; Cervical nerve root impingement G54.2 ; Hypercalcemia E83.52 and Depression, unspecified depression type F32.9 Assessments Encounter Date Diagnosis (ICD Code) Assessment Notes Treatment Notes Treatment Clinical Notes 11/20/2023 Underweight (ICD-10 - R63.6) She remains under weight, but this is a stable ppattern for her. Nutritional status seems good. 11/20/2023 Chronic fatigue (ICD-10 - R53.82) Her blood woork shows no anemia. Renal function is normal. She continues to function well and life. 11/20/2023 Macrocytosis (ICD-10 - D75.89) Her mean cell volume is 107. Shortly before this, it was 1110. Review of the [place] [facility] [place] [facility] shows it to mean cell volume has been above normal as for back, just 2010. At that time it was 102. Observation will continue. 11/20/2023 Former smoker (ICD-10 - Z87.891) She is highly motivated not to smoke and she has a plan for prevention of relapse in times of illness or stress. 11/20/2023 Chronic insomnia (ICD-10 - F51.04) He wondered if medication would help and I suggested either tramadol or an antihistamine. She said she would consider these. In general, her insomnia has improved. 11/20/2023 Cervical nerve root impingement (ICD-10 - G54.2) She denies any recent neck pain and is doing quite well. She has occasional pain with turning her neck but no radiation. Observation continues. 11/20/2023 Hypercalcemia (ICD-10 - E83.52) Her calcium has returned to normal with parathyroid surgery. She will continue on replacement. 11/20/2023 Depression, unspecified depression type (ICD-10 - F32.9) There is no sign of depression on today's visit. Plan Of Treatment Medication Medication Name Sig Start Date Stop Date Notes valACYclovir HCl 500 MG 1 tablet Orally Once a day 023 Multivitamin - 1 tablet Orally Once a day Calcium 1 tab Oral Pending Test Test Name Order Date PROFILE, RANDOM (COMPREHENSIVE METABOLIC ) 11/20/2023 CBC WITH AUTO DIFF 11/20/2023 RETIC 11/20/2023 Folate 11/20/2023 Next Appt Details Follow Up: 6 Months, Reason: OV Provider Name:Harvinder Moscoso , 11/24/2025 02:00:00 PM, [address] [place] [address] [place] [place], [phone], Progress Notes * Nicole AWADOB:1950 (73 yo F)Acc No.[id number]:11/20/2023 Progress Notes Patient: Jess HIDALGO Provider: Patti Moscoso MD :1950 A ge:73 Y S ex:Female Date:11/20/2023 Address:[address] [place] [address] [address] [place], [id number] Subjective: * Chief Complaints: * A nnual Exam * HPI: D epression Screening: S he returns to the office at the age of 73, for her annual physical examination. Since her last visit she has been healthy and well. He is up-to-date with a recent mammogram. It showed dense breast tissue at the age of 73 so her mercerizer machine operator suggested an ultrasound which showed no sign of malignancy. She is concerned about a cousin who is in a rehabilitation facility after illness. A recent bone density showed osteopenia. S he is taking vitamin D and I recommended 500 mg of Os-Sylvester twice a day. Her examination today showed no new findings.Is up-to-date with colonoscopies.A bone density test done September 04, 2023 showed osteopenia.Blood work done 2023 showed white count 4.1, hematocrit 42.3, mean cell volume 107 platelets 179 glucose 78, BUN 18 creatinine 1.1, GFR 54. The chemistries are unremarkable. PHQ-9 L ittle interest or pleasure in doing things?Not at all F eeling down, depressed, or hopeless N ot at all T rouble falling or staying asleep, or sleeping too much N ot at all F eeling tired or having little energy N ot at all P oor appetite or overeating N ot at all F eeling bad about yourself or that you are a failure, or have let yourself or your family down N ot at all T rouble concentrating on things, such as reading the newspaper or watching television N ot at all M oving or speaking so slowly that other people could have noticed; or the opposite, being so fidgety or restless that you have been moving around a lot more than usual N ot at all T houghts that you would be better off or of hurting yourself in some way N ot at all T otal Score 0 C OVID-19 Screening: Questions H ave you experienced fever, chills, cough, sore throat, shortness of breath, difficulty breathing, muscle aches, loss of taste or smell? N o H ave you been exposed to the virus within the last 10 days? N o H ave you travelled internationally in the last 10 days? N o H ave you been exposed to COVID-19 in the past? Y es S JACOBY Questions: SDOH Questions I n the past year have you been worried about losing your housing? N o I n the past year have you or any family members you live with been unable to get any of the following when it was really needed? Check all that apply: N one F all Risk Screening: Fall History H ave you had any falls with injury in the past year? N o H ave you had two or more falls in the past year? N o F all Risk Assessment: N o falls in the past year * ROS: G eneral/Constitutional: pain o nly [...] enies. D iarrhea d enies. H e[place] o ccasional. N ausea d enies. R ectal bleeding [...] E xcision of 2cm lipoma, right flank [id number] [id number] 10/25/22 * Hospitalization/Major Diagno stic Procedure: D [...] dditional Findings: Tobacco Non-User E x-cigarette smoker Tobacco Control (Standard) T obacco use: N onsmoker A dditional Findings: Tobacco non-user A ggressive nonsmoker D rugs/Alcohol: D rugs H ave you used drugs other than those for medical reasons in the past 12 months? N o D rug/Alcohol: A MARIAH-C (Standard) D id you have a drink containing alcohol in the past year? N o P oints 0 I nterpretation N egative S he was born in [place], [place]. 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 * Medications: T akingMultivitamin - Tablet 1 tablet Orally Once a day valACYclovir HCl 500 MG Tablet 1 tablet Orally Once a day Calcium 1 tab Oral Medication List reviewed and reconciled with the patientTaking Multivitamin - Tablet 1 tablet Orally Once a day Taking valACYclovir HCl 500 MG Tablet 1 tablet Orally Once a day Taking Calcium 1 tab Oral Medication List reviewed and reconciled with the patient * Allergies: D ust MitesRagweedGrass Mix Pollens Allergen Extno[Allergies Verified] Objective: * Vitals: H t: 67, Wt:120, BMI:18.79, BP:115/71, HR:77, Temp:98.8, Wt-k.43. * P ast Orders: Lab:URINE DIP STICK * Collection Date 11/20/2023 11/17/2022 08/30/2020 Order Date 11/20/2023 11/17/2022 08/30/2020 SG 1.005 (Ref Range: 1.005 - 1.025) 1.010 (Ref Range: 1.005 - 1.025) 1.005 pH 7.0 (Ref Range: 5.0 - 9.0) 6.5 (Ref Range: 5.0 - 9.0) 7 LUIS MANUEL Negative (Ref Range: Negative -) Negative (Ref Range: Negative -) neg NIT Negative (Ref Range: Negative -) Negative (Ref Range: Negative -) neg PRO Negative (Ref Range: Negative - Trace) 15 (Ref Range: Negative - Trace) trace GLU Negative (Ref Range: Negative -) Negative (Ref Range: Negative -) normal KET Negative (Ref Range: Negative -) Negative (Ref Range: Negative -) neg UBG Negative (Ref Range: 0.1 - 1.8) 0.2 (Ref Range: 0.1 - 1.8) normal TYRESE Negative (Ref Range: 0.2 - 1.3) Negative (Ref Range: 0.2 - 1.3) neg BLD Negative (Ref Range: Negative -) Negative (Ref Range: Negative -) neg Menstrating NR N/A no * Imaging:MAMMOGRAM DIGITAL BI LATERAL SCREEN * Performed Date 10/12/2023 Order Date 10/12/2023 08/27/2014 08/25/2013 Result: undefined * Examination: G eneral Examination: GENERAL APPEARANCE: p leasant, well nourished, well developed, in no acute distress, calm and relaxed, underweight, woman. HEAD: a traumatic, normocephalic. EYES: e kin, perrla, anicteric, conjugate. EARS: n ormal. NOSE: s eptum intact. ORAL CAVITY: n ormal, unremarkable. NECK/THYROID: n o jugular venous distention, no carotid bruit, thyroid normal, Small scar. LYMPH NODES: n o enlarged lymph nodes,spleen normal. SKIN: n o suspicious lesions, anicteric. HEART: n o clicks, gallops, murmurs, or rubs, regular rhythm, S1, S2 normal, no s3, or vascular bruits. LUNGS: c lear to auscultation . BREASTS: no masses palpable bilaterally. ABDOMEN: b owel sounds normal, no ascites, no organomegaly, no mass, Underweight. RECTAL EXAM: n ot examined. MUSCULOSKELETAL: e xtremities unremarkable, no clubbing, cyanosis or edema. PERIPHERAL PULSES: n ormal. NEUROLOGIC: a lert and oriented, cranial nerves 2-12 grossly intact, deep tendon reflexes 2+ symmetrical, motor strength normal upper and lower extremities, sensory exam intact. PSYCH: a lert, oriented, thought process logical, goal directed, speech clear, mood/affect full range, judgement and insight good, good eye contact, cooperative with exam, cognitive function intact. Assessment: * Assessment: 1. U nderweight - R63.6 (Primary) N otes :She remains under weight, but this is a stable ppattern for her. Nutritional status seems good. 2 . C hronic fatigue - R53.82 N otes :Her blood woork shows no anemia. Renal function is normal. She continues to function well and life. 3 . M acrocytosis - D75.89 N otes :Her mean cell volume is 107. Shortly before this, it was 1110. Review of the CBCs done at area hospitalizations including [facility] shows it to mean cell volume has been above normal as for back, just 2010. At that time it was 102. Observation will continue. 4 . F ormer smoker - Z87.891 N otes :She is highly motivated not to smoke and she has a plan for prevention of relapse in times of illness or stress. 5 . C hronic insomnia - F51.04 N otes :He wondered if medication would help and I suggested either tramadol or an antihistamine. She said she would consider these. In general, her insomnia has improved. 6 . C ervical nerve root impingement - G54.2 N otes :She denies any recent neck pain and is doing quite well. She has occasional pain with turning her neck but no radiation. Observation continues. 7 . H ypercalcemia - E83.52 N otes :Her calcium has returned to normal with parathyroid surgery. She will continue on replacement. 8 . D epression, unspecified depression type - F32.9 N otes :There is no sign of depression on today's visit. Plan: * Treatment: 2. C hronic fatigue L AB: PROFILE, RANDOM (COMPREHENSIVE METABOLIC) L AB: CBC WITH AUTO DIFF L AB: RETIC L AB: Folate 3. M acrocytosis L AB: PROFILE, RANDOM (COMPREHENSIVE METABOLIC) L AB: CBC WITH AUTO DIFF L AB: RETIC L AB: Folate 4. O thers Continue valACYclovir HCl Tablet, 500 MG, 1 tablet, Orally, Once a day; C ontinue Calcium, 1 tab, Oral; C ontinue Multivitamin Tablet, -, 1 tablet, Orally, Once a day. * Labs: * L ab: URINE DIP STICK (Collection Date & Time - 11/20/2023) Value Reference Range S G 1.005 1.005 - 1.025 * p H 7.0 5.0 - 9.0 * L EU Negative Negative - * N IT Negative Negative - * P RO Negative Negative - Trace * G FABIÁN Negative Negative - * K ET Negative Negative - * U BG Negative 0.1 - 1.8 * B IL Negative 0.2 - 1.3 * B LD Negative Negative - * Procedure Codes: 8 1002 URINE-NO MICRO * Preventive Medicine: Counseling: C are goal follow-up plan: Counseling for abnormal BMI given Y es Below Normal BMI Follow-up D ietary education for weight gain * Follow Up: 6 Months (Reason: OV) * Images: * Sign off status: Completed true * Provider: Patti Moscoso MD Date: Generated for Printi ng/Faxing/eTransmitting on: 03/15/2024 06:25 PM EST History and Physical Notes * HPI (History of Present Illness) Category Sub-Category Detail Notes Depression Screening PHQ-9 Little inte rest or pleasure in doing things: Not at all Feeling down, depressed, or hopeless: No t at all Trouble falling or staying asleep, or sl eeping too much: Not at all Feeling tired or having little energy: N ot at all Poor appetite or overeating: Not at all Feeling bad about yourself o r that you are a failure, or have let yourself or your family down: Not at all Trouble concentrating on thi ngs, such as reading the newspaper or watching television: Not at all Moving or speaking so slowly that other people could have noticed; or the opposite, being so fidgety or restless that you have been moving around a lot more than usual: Not at all Thoughts that you would be b kacy off or of hurting yourself in some way: Not at all Total Score: 0 Fall Risk Screening Fall History Have you had any falls with injury in the past year?: No Have you had two or more falls in the year?: No Fall Risk Assessment:: No falls in the year COVID-19 Screening Questions Have you had any new onset fever, chills, cough, congestion, sore throat, shortness of breath, muscle aches?: No Have you been exposed to the virus withi n the last 10 days?: No Have you travelled internationally in last 10 days?: No Have you been exposed to COVID-19 in the past?: Yes SDOH Questions SDOH Questions In the past year have you been worried about losing your housing?: No In the past year have you or any family members you live with been unable to get any of the following when it was really needed? Check all that apply:: None Examination Category Sub-Category Detail Notes General Examination GENERAL APPEARANCE: pleasant , well nourished, well developed, in no acute distress, calm and relaxed, underweight, woman HEAD: atraumatic, normocep halic EYES: eomi, perrla, anicte duran, conjugate EARS: normal NOSE: septum intact NECK/THYROID: no jugular venous di stention, no carotid bruit, thyroid normal, Small scar HEART: no clicks, gallops, murmurs, or rubs, regular rhythm, S1, S2 normal, no s3, or vascular bruits LUNGS: clear to auscultatio n ABDOMEN: bowel sounds normal, no ascites, no organomegaly, no mass, Underweight NEUROLOGIC: alert and oriented, cranial nerves 2-12 grossly intact, deep tendon reflexes 2+ symmetrical, motor strength normal upper and lower extremities, sensory exam intact SKIN: no suspicious lesion s, anicteric PERIPHERAL PULSES: normal BREASTS: no masses palpable b ilaterally MUSCULOSKELETAL: extremities unremark able, no clubbing, cyanosis or edema LYMPH NODES: no enlarged lymph no jorge a,spleen normal RECTAL EXAM: not examined PSYCH: alert, oriented, tho ught process logical, goal directed, speech clear, mood/affect full range, judgement and insight good, good eye contact, cooperative with exam, cognitive function intact ORAL CAVITY: normal, unremarkable
--- OUTSIDE RECORDS SUMMARY | 2024-05-20 09:00 | XMS_ITS ---
Author Organization Harvinder Moscoso III, MD Address [address] [place] [address] Care Team Providers Care Asset Protection Greeter Name Role Phone Dr. Harvinder Moscoso III Primary Care Provider Allergies Allergen (clinical drug ingredient) Drug/Non Drug Allergy documented on EMR Reaction Allergy Type Onset Date Status Ragweed Unknown Allergy Active Dust Mites Unknown Allergy Active Grass Mix Pollens Allergen Ext Unknown Drug Allergy Active REASON FOR VISIT Allergic rhinitis, Cervical radiculopathy, Macrocytosis, Insomnia, Underweight, Have a normal Pap smear, Obstructive sleep apnea, Abnormal liver function tests Medications Medication SIG (Take, Route, Fr equency, Duration) Notes Start Date End Date Status valACYclovir HCl 500 MG 1 tablet Orally Once a day 05/09/2022 Active Calcium 1 tab Oral Active Multivitamin - 1 tablet Orally Once a day Active Social History Tobacco Use: Social History Observation Description Date Details (start date - stop date) Never Smoker NA - NA Sex Assigned At : Social History Observation Description Sex Assigned At Female Tobacco Control (Standard) Question Answer Notes Tobacco use: Nonsmoker Additional Findings: Tobacco non-user Aggressive nonsmoker Vital Signs Temperature 97.4 degrees Fahrenheit 05/21/19 25 Blood pressure systolic 137 mm Hg 05/21/19 25 Blood pressure diastolic 72 mm Hg 025 Heart Rate 75 /min 05/20/2024 Height 67 in 05/20/2024 Weight 117 lbs 05/20/2024 BMI 18.32 kg/m2 05/20/2024 Encounters Encounter Location Date Provider Diagnosis Harvinder Moscoso III, MD [address] [place] [address] DR [place], AMINTA [address] 05/20/2024 Harvinder Moscoso Underweight R63.6 ; Hyperparathyroidism E21.3 ; Other and unspecified hyperlipidemia E78.5 ; Macrocytosis D75.89 ; Abnormal liver function test R94.5 and Osteoporosis, unspecified M81.0 Assessments Encounter Date Diagnosis (ICD Code) Assessment Notes T reatment Notes Treatment Clinical Notes 05/20/2024 Underweight (ICD-10 - R63.6) She is excrete 100 and her body mass index is now 18. She weighs 117 pounds, which is close to normal for her. He says she feels well. Her weight will be observed. We discussed nutrition at length today. 05/20/2024 Hyperparathyroidism (ICD-10 - E21.3) Her calcium is now normal. This will be observed carefully. No additional treatment is necessary. 05/20/2024 Other and unspecifie d hyperlipidemia (ICD-10 - E78.5) Her lipids have been stable. No change in her regimen was madee today. 05/20/2024 Macrocytosis (ICD-10 - D75.89) Her mean cell volume is 107. She has mild elevation of 2 liver function tests. The white blood cell count and platelet count are normal. She has a mild normochromic normocytic anemia with an unremarkable reticulocyte count. This will be observed. It could be early myelodysplasia or an ingested substance 05/20/2024 Abnormal liver funct ion test (ICD-10 - R94.5) There is still slight elevation of 2 transaminase enzymes. This will be observed. 05/20/2024 Osteoporosis, unspecified (ICD-10 - M81.0) She is being treated. A bone density test will be done periodically. Plan Of Treatment Medication Medication Name Sig Start Date Stop Date Notes valACYclovir HCl 500 MG 1 tablet Orally Once a day 03/21/2 023 Calcium 1 tab Oral Multivitamin - 1 tablet Orally Once a day Pending Test Test Name Order Date PROFILE, FASTING (COMPREHENSIVE METABOLI C) 05/20/2024 CBC w DIFF 05/20/2024 RETIC 05/20/2024 Uric Acid 05/20/2024 Calcium 05/20/2024 Lipid Panel 05/20/2024 Vitamin B12 and Folate 05/20/2024 Next Appt Details Follow Up: As scheduled, Casandra son: Annual Exam Provider Name:Harvinder Moscoso , 11/24/2025 02:00:00 PM, [address] [place] [address] , [place] [id number], [place], [address], Progress Notes * Nicole AWADOB:1950 (73 yo F)Acc No.[id number]:05/20/2024 Progress Notes Patient: Jess HIDALGO Provider: Patti Moscoso MD :1950 A ge:73 Y S ex:Female Date:05/20/2024 Address:[address] [place] [id number] Subjective: * Chief Complaints: * A llergic rhinitisCervical radiculopathyMacrocytosisInsomniaUnderweightHave a normal Pap smearObstructive sleep apneaAbnormal liver function tests * HPI: C OVID-19 Screening: She comes to the office today for a routine scheduled visit. She has no new complaints and says she feels well. Her appetite is good. She remains under weight, but stable. Her blood work was reviewed with her including her liver function tests. She is not depressed today. Her calcium is normal. She is sleeping better. She is using her CPAP every night. Questions H ave you had any new onset fever, chills, cough, congestion, sore throat, shortness of breath, muscle aches? N o * ROS: G eneral/Constitutional: pain [...] E xcision of 2cm lipoma, right flank [id number] x2 [id number] 10/25/22 * Hospitalization/Major Diagno stic Procedure: D enies Past Hospitalization * Family History: F ather: 85 yrs, mouth cancer. M other: 90 yrs, alzheimer. M aternal aunt: 80 yrs, breast cancer. 1 sister(s) - healthy. . She has no children. * Social History: T obacco Use: T obacco Control (Standard) T obacco use: N onsmoker A dditional Findings: Tobacco non-user A ggressive nonsmoker S he was born in [place], [place]. 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 * Medications: T akingvalACYclovir HCl 500 MG Tablet 1 tablet Orally Once a day Calcium 1 tab Oral Multivitamin - Tablet 1 tablet Orally Once a day Medication List reviewed and reconciled with the patientTaking valACYclovir HCl 500 MG Tablet 1 tablet Orally Once a day Taking Calcium 1 tab Oral Taking Multivitamin - Tablet 1 tablet Orally Once a day Medication List reviewed and reconciled with the patient * Allergies: D ust MitesRagweedGrass Mix Pollens Allergen Extno[Allergies Verified] Objective: * Vitals: H t: 67, Wt:117, BMI:18.32, BP:137/72, HR:75, Temp:97.4, Wt-k.07. * P ast Orders: L ab:Complete Blood Count Auto Diff (Order Date - 05/12/2024) (Collection Date & Time - 05/12/2024 12:25 PM) Value Reference Range White Blood Count 6.1 4.8-10.8 - X10*3/uL Red Blood Count 3.87 L 4.20-5.50 - X10*6/uL Hemoglobin 14.2 12.0-16.0 - g/dl Hematocrit 41.6 37.0-47.0 - % Mean Corpuscular Volume 107.5 H 80.0-98.0 - fL Mean Corpuscular Hemoglobin 36.7 H 27.0-33.0 - pg Mean Corpuscular HGB Conc 34.1 31.0-35.0 - g/ dl Red Cell Distribution Width 13.3 11.0-16.0 - % Platelet Count 196 160-400 - X10*3/uL Mean Platelet Volume 11.2 9.4-12.3 - fL Neutrophils Percent Auto 60.4 45-73 - % Imm Gran Pct Auto 0.2 0.0-0.4 - % Lymphocytes Percent Auto 30.1 20-40 - % Monocytes Percent Auto 8.3 2-11 - % Eosinophils Percent Auto 0.5 0-4 - % Basophils Percent Auto 0.5 0-2 - % NRBC Pct Auto 0.0 0.0-0.2 - /100WBC Neutrophils Absolute Auto 3.7 2.0-8.3 - x10* 3/uL Imm Gran Abs Auto 0.01 0.00-0.03 - X10*3/uL Lymphocytes Absolute Auto 1.8 1.2-4.9 - X10* 3/uL Monocytes Absolute Auto 0.5 0.1-1.2 - X10*3/ uL Eosinophils Absolute Auto 0.0 0.0-0.4 - X10* 3/uL Basophils Absolute Auto 0.0 0.0-0.2 - X10*3/ uL NRBC Abs Auto 0.000 0.0-0.012 - X10*3/uL L ab:RETIC (Order Date - 05/12/2024) (Collection Date & Time - 05/12/2024 12:25 PM) Value Reference Range Reticulocytes Absolute 0.064 0.026-0.095 - X10 *6/uL Immature Retic Fraction 11.7 3.0-15.9 - % Retic HGB Equivalent 38.4 H 30.0-35.0 - pg Reticulocyte Percent 1.6 0.5-1.8 - % L ab:Comprehensive Met. Panel (Order Date - 05/12/2024) (Collection Date & Time - 05/12/2024 12:25 PM) Value Reference Range Sodium 138 135-145 - mmol/L Bilirubin Total 0.4 0.0-1.0 - mg/dL Aspartate Amino Transferase 62 H 5-31 - U/L Alanine Aminotransferase 60 H 0-31 - U/L Total Protein 7.5 6.5-8.0 - g/dL Albumin Level 4.5 3.5-5.0 - g/dL Alkaline Phosphatase 74 39-117 - U/L Potassium 3.4 3.3-5.1 - mmol/L Chloride 101 96-108 - mmol/L Carbon Dioxide 30 H 22-29 - mmol/L Anion Gap 10 L 12-20 - Blood Urea Nitrogen 23 H 9-16 - mg/dL Creatinine 0.98 0.5-1.4 - mg/dL Estimated Glomerular Filt Rate 56 - Glucose Random 90 60-115 - mg/dL Calcium 9.3 8.4-10.2 - mg/dL L ab:Folate (Order Date - 05/12/2024) (Collection Date & Time - 05/12/2024 12:25 PM) Value Reference Range Folate 19.3 > or = 4.0 - ng/mL * Examination: G eneral Examination: GENERAL APPEARANCE: p leasant, well nourished, well developed, in no acute distress, calm and relaxed, underweight, woman. HEAD: a traumatic, normocephalic. EYES: e kin, perrla, anicteric, conjugate. EARS: n ormal. NOSE: s eptum intact. ORAL CAVITY: n ormal, unremarkable. NECK/THYROID: n o jugular venous distention, no carotid bruit, thyroid normal. LYMPH NODES: n o enlarged lymph nodes,spleen normal. SKIN: n o suspicious lesions, anicteric. HEART: n o clicks, gallops, murmurs, or rubs, regular rhythm, S1, S2 normal, no s3, or vascular bruits. LUNGS: c lear to auscultation . BREASTS: N ot examined. ABDOMEN: b owel sounds normal, [...] a lert, oriented. Assessment: * Assessment: 1. H yperparathyroidism - E21.3 (Primary) N otes :Her calcium is now normal. This will be observed carefully. No additional treatment is necessary. 2 . U nderweight - R63.6 N otes :She is excrete 100 and her body mass index is now 18. She weighs 117 pounds, which is close to normal for her. He says she feels well. Her weight will be observed. We discussed nutrition at length today. 3 . O ther and unspecified hyperlipidemia - E78.5 N otes :Her lipids have been stable. No change in her regimen was madee today. 4 . M acrocytosis - D75.89 N otes :Her mean cell volume is 107. She has mild elevation of 2 liver function tests. The white blood cell count and platelet count are normal. She has a mild normochromic normocytic anemia with an unremarkable reticulocyte count. This will be observed. It could be early myelodysplasia or an ingested substance 5 . A bnormal liver function test - R94.5 N otes :There is still slight elevation of 2 transaminase enzymes. This will be observed. 6 . O steoporosis, unspecified - M81.0 N otes :She is being treated. A bone density test will be done periodically. Plan: * Treatment: 2. U nderweight L AB: PROFILE, FASTING (COMPREHENSIVE METABOLIC) L AB: CBC w DIFF L AB: RETIC L AB: Uric Acid L AB: Calcium L AB: Lipid Panel L AB: Vitamin B12 and Folate 3. O ther and unspecified hyperlipidemia L AB: PROFILE, FASTING (COMPREHENSIVE METABOLIC) L AB: CBC w DIFF L AB: RETIC L AB: Uric Acid L AB: Calcium L AB: Lipid Panel L AB: Vitamin B12 and Folate 4. M acrocytosis L AB: PROFILE, FASTING (COMPREHENSIVE METABOLIC) L AB: CBC w DIFF L AB: RETIC L AB: Uric Acid L AB: Calcium L AB: Lipid Panel L AB: Vitamin B12 and Folate 5. A bnormal liver function test L AB: PROFILE, FASTING (COMPREHENSIVE METABOLIC) L AB: CBC w DIFF L AB: RETIC L AB: Uric Acid L AB: Calcium L AB: Lipid Panel L AB: Vitamin B12 and Folate 6. O steoporosis, unspecified L AB: Calcium 7. O thers Continue valACYclovir HCl Tablet, 500 MG, 1 tablet, Orally, Once a day; C ontinue Calcium, 1 tab, Oral; C ontinue Multivitamin Tablet, -, 1 tablet, Orally, Once a day. * Procedure Codes: * Preventive Medicine: Counseling: C are goal follow-up plan: Counseling for abnormal BMI given Y es Below Normal BMI Follow-up D ietary education for weight gain, Dietary management education, guidance, and counseling, Feeding regime, Lifestyle education regarding diet, Nutrition / feeding management, Prescribed diet education, Special diet education, Intervention, Order not done: Medical or Other reason not done * Follow Up: A s scheduled (Reason: Annual Exam) * Images: * Sign off status: Completed true * Provider: Patti Moscoso MD Date: 0 05/20/2024 Generated for Mukund aguiar/Amy/eTfengsmitting on: 03/15/2024 06:25 PM EST History and Physical Notes * HPI (History of Present Illness) Category Sub-Category Detail Notes COVID-19 Screening Questions Have you had any new onset fever, chills, cough, congestion, sore throat, shortness of breath, muscle aches?: No Examination Category Sub-Category Detail Notes General Examination GENERAL APPEARANCE: pleasant , well nourished, well developed, in no acute distress, calm and relaxed, underweight, woman HEAD: atraumatic, normocep halic EYES: eomi, perrla, anicte duran, conjugate EARS: normal NOSE: septum intact NECK/THYROID: no jugular venous di stention, no carotid bruit, thyroid normal HEART: no clicks, gallops, murmurs, or rubs, [...] lesion s, anicteric PERIPHERAL PULSES: normal BREASTS: Not examined MUSCULOSKELETAL: extremities unremark able, no clubbing, cyanosis or edema LYMPH NODES: no enlarged lymph no jorge a,spleen normal RECTAL EXAM: not examined PSYCH: alert, oriented ORAL CAVITY: normal, unremarkable
--- OUTSIDE RECORDS SUMMARY | 2024-06-12 08:32 | XMS_ITS ---
Author Organization Harvinder Moscoso III, MD Address [address] [place] [address] Care Team Providers Care Powerhouse Laborer Name Role Phone Dr. Harvinder Moscoso III Primary Care Provider REASON FOR VISIT Rx refill Medications Medication SIG (Take, Route, Frequency, Duration) Notes Start Date End Date Status valACYclovir HCl 500 MG 1 tablet Orally Once a day for 30 days 05/09/2022 06/07/2025 Active Social History Sex Assigned At : Social History Observation Description Sex Assigned At Female Encounters Encounter Location Date Provider Diagnosis Harvinder Moscoso III, MD [address] [place] [address] [place] [address] 06/12/2024 Harvinder Moscoso Plan Of Treatment Medication Medication Name Sig Start Date Stop Date Notes valACYclovir HCl 500 MG 1 tablet Orally Once a day for 30 days 05/09/2022 06/07/2025 Next Appt Details Provider Name:Harvinder Moscoso , 11/24/2025 02:00:00 PM, [address] [place] [address] [place], [address], Progress Notes * Antonio AWAD:1950 (73 yo F)Acc No.[id number]:06/12/2024 Patient: Jess HIDALGO :1950 A ge:73 Y S ex:Female Address:[address] [place] [id number] * Refills Refill valACYclovir HCl Tablet, 500 MG, Orally, 30 Tablet, 1 tablet, Once a day, 30 days, Refills=11 * true * Date: Generated for Mukund aguiar/Amy/Shawnsmitting on: 03/15/2024 06:25 PM EST
--- OUTSIDE RECORDS SUMMARY | 2024-08-14 06:44 | XMS_ITS ---
Author Organization Harvinder Moscoso III, MD Address [address] [place] [address] [place] [address] Care Team Providers Care Plastic Parts Designer Name Role Phone Dr. Harvinder Moscoso III Primary Care Provider Social History Sex Assigned At : Social History Observation Description Sex Assigned At Female Encounters Encounter Location Date Provider Diagnosis Harvinder Moscoso III, MD [address] [place] [address] [place] [address] 08/14/2024 Harvinder Moscoso Plan Of Treatment Next Appt Details Provider Name:Harvinder Moscoso , 11/24/2025 02:00:00 PM, [address] [place] [address] [place], [address], Progress Notes * Nicole AWADOB:1950 (74 yo F)Acc No.[id number]:08/14/2024 Patient: Jess HIDALGO :1950 A ge:74 Y S ex:Female Address:[address] [place], [place] [address] [address] * true * Date: Generated for Mukund aguiar/Amy/Joanna on: 03/15/2024 06:25 PM EST
--- OUTSIDE RECORDS SUMMARY | 2024-11-21 08:45 | XMS_ITS ---
Author Organization Harvinder Moscoso III, MD Address [address] [place] [address] Care Team Providers Care Field Geologist Name Role Phone Dr. Harvinder Moscoso III Primary Care Provider Allergies Allergen (clinical drug ingredient) Drug/Non Drug Allergy documented on EMR Reaction Allergy Type Onset Date Status No Known Drug Allergy Unknown Drug Allergy Active Ragweed Unknown Allergy Active No Known Food Allergy Unknown Drug Allergy Active Dust Mites Unknown Allergy Active Grass Mix Pollens Allergen Ext Unknown Drug Allergy Active Reason For Referral Reason Evaluate and Treat weakness in left 5th finger Diagnosis 1 Stiffness of left villan[place] nd, not elsewhere classified (M25.642) Referral Organization Harvinder Moscoso III, MD Referring Provider First Name Harvinder Referring Provider Last Name Blanka Referring Provider Speciality Internal M edicine Referred Provider Carolyn Greenwood Referred Provider Specialty Hand Surgery General Notes DZeina 11/24/2024 01:55:36 PM > Referral and progress note faxed. Referral Priority Routine REASON FOR VISIT Annual Exam Medications Medication [...] Points 0 Interpretation Negative Vital Signs Temperature 97.2 degrees Fahrenheit 11/22/19 25 Blood pressure systolic 134 mm Hg 11/22/19 25 Blood pressure diastolic 73 mm Hg 025 Heart Rate 78 /min 11/21/2024 Height 67 in 11/21/2024 Weight 118 lbs 11/21/2024 BMI 18.48 kg/m2 11/21/2024 Encounters Encounter Location Date Provider Diagnosis Harvinder Moscoso III, MD [address] [place] [address] [place] [id number] 11/21/2024 Harvinder Moscoso Macrocytosis D75.89 ; Other and unspecified hyperlipidemia E78.5 ; Former smoker Z87.891 ; Underweight R63.6 ; Allergic rhinitis, unspecified J30.9 ; Spastic bladder N32.89 ; Cervical nerve root impingement G54.2 ; Chronic insomnia F51.04 ; Depression, unspecified depression type F32.9 ; Hyperparathyroidism E21.3 ; Osteoporosis, unspecified M81.0 and Obstructive sleep apnea syndrome G47.33 Assessments Encounter Date Diagnosis (ICD Code) Assessment Notes T reatment Notes Treatment Clinical Notes 11/21/2024 Macrocytosis (ICD-10 - D75.89) The reticulocyte count and vitamin B12 and folic acid levels are normal. Her mean cell volume was elevated at 108. This is likely due to to some dietary issue or early myelodysplastic syndrome. They will continue to be followed. She is not taking any medication that should causes denies consumption of alcohol. 11/21/2024 Other and unspecifie d hyperlipidemia (ICD-10 - E78.5) Her total cholesterol is 240. The HDL is 85 giving her a ratio below 4.0. At this point she does not wish to take a statin medication.Have a significant family history of ischemic heart disease or stroke. 11/21/2024 Former smoker (ICD-1 0 - Z87.891) She is highly motivated not to smoke and she has a plan for prevention of relapse in times of illness or stress. 11/21/2024 Underweight (ICD-10 - R63.6) Her body mass index is now 18. She weighs 117 pounds, which is close to normal for her. He says she feels well. Her weight will be observed. We discussed nutrition at length today. 11/21/2024 Allergic rhinitis, unspecified (ICD-10 - J30.9) Her rhinitis has been stable and well controlled with occasional use a medication. She has had no complaints about this since last spring. 11/21/2024 Spastic bladder (ICD -10 - N32.89) Her bladder function has been satisfactory lately and she is not rising in night urinate much. No change in her regimen is dated today. 11/21/2024 Cervical nerve root impingement (ICD-10 - G54.2) She denies any recent neck pain and is doing quite well. She has occasional pain with turning her neck but no radiation. Observation continues. 11/21/2024 Chronic insomnia (IC D-10 - F51.04) He wondered if medication would help and I suggested either tramadol or an antihistamine. She said she would consider these. In general, her insomnia has improved. 11/21/2024 Depression, unspecif ied depression type (ICD-10 - F32.9) There is no sign of depression on today's visit. 11/21/2024 Hyperparathyroidism (ICD-10 - E21.3) Her calcium is now normal at 9.3. This will be observed carefully. No additional treatment is necessary. 11/21/2024 Osteoporosis, unspecified (ICD-10 - M81.0) She is being treated. A bone density test will be done periodically. 11/21/2024 Obstructive sleep ap colby syndrome (ICD-10 - G47.33) Treating this disorder has been frustrated by her allergy to latex. She has a sore in the mouth and the floor at the very back of her tongue which is difficult to visualize because of trismus. She is going to have a telephone visit one week to see if this resolves after not using her latex mass for 1 week. Plan Of Treatment Medication Medication Name Sig Start Date Stop Date Notes valACYclovir HCl 500 MG 1 tablet Orally Once a day 023 Multivitamin - 1 tablet Orally Once a day Calcium 1 tab Oral Pending Test Test Name Order Date PROFILE, FASTING (COMPREHENSIVE METABOLI C) 11/21/2024 CBC w DIFF 11/21/2024 Lipid Panel 11/21/2024 Referrals Referral Date Details 11/21/2024 11/21/2024, Evaluate and Treat weakness in left 5th finger, Carolyn Greenwood Next Appt Details Follow Up: 1 Year, Reason: A nnual Exam Provider Name:Harvinder Moscoso , 11/24/2025 02:00:00 PM, [address] [place] [address] [place], [facility] [place], [address], Progress Notes * Nicole AWADOB:1950 (74 yo F)Acc No.[id number]:11/21/2024 Progress Notes Patient: Jess HIDALGO Provider: Patti Moscoso MD :1950 A ge:74 Y S ex:Female Date:11/21/2024 Address:[address] [place], [place] [id number] Subjective: * Chief Complaints: * A nnual Exam * HPI: D epression Screening: She returns to the office at the age of 74 for her annual visit. She has been compliant with her medications. She denies any shortness of breath chest pain bleeding or weakness. She has one new complaint which is weakness of the fifth finger on the left hand with flexion. She says it feels weak and awkward. On examination she has less strength in the finger than on the opposite hand. The cause was unclear and there was no sign of trauma. She was referred to orthopedic surgery to hand surgery for an evaluation. She is up-to-date with influenza vaccine, BANKING SUPERVISOR exams and mammography.Comprehensive blood work done October 22, 2024 showed white count 4000 hematocrit 41.9 platelets 191 reticulocytes 1.3 B12 788 folic acid greater than 20 uric acid 4.2 Glucose 83 BUN 22 creatinine 1.13 GFR 52 SGOT 89 SGPT 114 total cholesterol 240 triglycerides 85 HDL 80 LDL 145. Her liver function tests remain abnormal in the mean cell volume is still elevated. PHQ-9 L ittle interest or pleasure in [...] C OVID-19 Screening: Questions H ave you had any new onset fever, chills, cough, congestion, sore throat, shortness of breath, muscle aches? N o S JACOBY Questions: SDOH Questions I n [...] of breath d enies. G astrointestinal: Constipation a dmits. D ecreased appetite d enies.?Diarrhea d enies. H eartburn d enies. N ausea d enies. R ectal bleeding?denies. V omiting d enies. H ematology: bruising [...] E xcision of 2cm lipoma, right flank [id number] x2 [id number] 10/25/22 * Hospitalization/Major Diagno stic Procedure: D [...] N egative S he was born in [place], [place]. 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 * Medications: T akingCalcium 1 tab Oral Multivitamin - Tablet 1 tablet Orally Once a day valACYclovir HCl 500 MG Tablet 1 tablet Orally Once a day , stop date 06/07/2025Medication List reviewed and reconciled with the patientTaking Calcium 1 tab Oral Taking Multivitamin - Tablet 1 tablet Orally Once a day Taking valACYclovir HCl 500 MG Tablet 1 tablet Orally Once a day , stop date 06/07/2025Medication List reviewed and reconciled with the patient * Allergies: D ust MitesRagweedGrass Mix Pollens Allergen ExtNo Known Drug AllergyNo Known Food Allergyno[Allergies Verified] Objective: * Vitals: H t: 67, Wt:118, BMI:18.48, BP:134/73, HR:78, Temp:97.2, Wt-k.52. * P ast Orders: Imaging:MAMMOGRAM DIGITAL BI LATERAL SCREEN * Performed Date 10/12/2023 Order Date 10/12/2023 10/08/2024 08/25/2013 Result: undefined undefined * Examination: G eneral Examination: GENERAL APPEARANCE: p leasant, well nourished, well developed, in no acute distress, calm and relaxed: underweight: woman. HEAD: a traumatic, normocephalic. EYES: e [...] LUNGS: c lear to auscultation . BREASTS: D eclined, done by BANKING SUPERVISOR. ABDOMEN: b owel sounds normal, no ascites, no organomegaly, no mass. RECTAL EXAM: n ot examinedDone by BANKING SUPERVISOR. MUSCULOSKELETAL: e xtremities unremarkable, no clubbing, cyanosis or edema. PERIPHERAL PULSES: n ormal. NEUROLOGIC: a lert and oriented, cranial nerves 2-12 grossly intact, deep tendon reflexes 2+ symmetrical, motor strength normal upper and lower extremities, sensory exam intact. PSYCH: a lert, oriented. Assessment: * Assessment: 1. M acrocytosis - D75.89 (Primary) N otes :The reticulocyte count and vitamin B12 and folic acid levels are normal. Her mean cell volume was elevated at 108. This is likely due to to some dietary issue or early myelodysplastic syndrome. They will continue to be followed. She is not taking any medication that should causes denies consumption of alcohol. 2 . O ther and unspecified hyperlipidemia - E78.5 N otes :Her total cholesterol is 240. The HDL is 85 giving her a ratio below 4.0. At this point she does not wish to take a statin medication.Have a significant family history of ischemic heart disease or stroke. 3 . F ormer smoker - Z87.891 N otes :She is highly motivated not to smoke and she has a plan for prevention of relapse in times of illness or stress. 4 . U nderweight - R63.6 N otes :Her body mass index is now 18. She weighs 117 pounds, which is close to normal for her. He says she feels well. Her weight will be observed. We discussed nutrition at length today. 5 . A llergic rhinitis, unspecified - J30.9 N otes :Her rhinitis has been stable and well controlled with occasional use a medication. She has had no complaints about this since last spring. 6 . S pastic bladder - N32.89 N otes :Her bladder function has been satisfactory lately and she is not rising in night urinate much. No change in her regimen is dated today. 7 . C ervical nerve root impingement - G54.2 N otes :She denies any recent neck pain and is doing quite well. She has occasional pain with turning her neck but no radiation. Observation continues. 8 . C hronic insomnia - F51.04 N otes :He wondered if medication would help and I suggested either tramadol or an antihistamine. She said she would consider these. In general, her insomnia has improved. 9 . D epression, unspecified depression type - F32.9 N otes :There is no sign of depression on today's visit. 1 0. H yperparathyroidism - E21.3 N otes :Her calcium is now normal at 9.3. This will be observed carefully. No additional treatment is necessary. 1 1. O steoporosis, unspecified - M81.0 N otes :She is being treated. A bone density test will be done periodically. 1 2. O bstructive sleep apnea syndrome - G47.33 N otes :Treating this disorder has been frustrated by her allergy to latex. She has a sore in the mouth and the floor at the very back of her tongue which is difficult to visualize because of trismus. She is going to have a telephone visit one week to see if this resolves after not using her latex mass for 1 week. Plan: * Treatment: 2. O ther and unspecified hyperlipidemia L AB: PROFILE, FASTING (COMPREHENSIVE METABOLIC) L AB: CBC w DIFF L AB: Lipid Panel 3. O thers Continue valACYclovir HCl Tablet, 500 MG, 1 tablet, Orally, Once a day; C ontinue Calcium, 1 tab, Oral; C ontinue Multivitamin Tablet, -, 1 tablet, Orally, Once a day. ? Referral To:Carolyn Greenwood Hand Surgery Reason:Evaluate and Treat weakness in left 5th finger * Procedure Codes: * Preventive Medicine: Counseling: [...] of tobacco use and urged to quit. 1 * Follow Up: 1 Year (Reason: Annual Exam) * Images: * Sign off status: Completed true * Provider: Patti Moscoso MD Date: Generated for Mukund aguiar/Amy/Lalitaitting on: 03/15/2024 06:25 PM EST History and [...] Fall Risk Assessment:: No falls in the p year COVID-19 Screening Questions Have you had any new onset fever, chills, cough, congestion, sore throat, shortness of breath, muscle aches?: No SDOH Questions SDOH Questions In the past [...] developed, in no acute distress, calm and relaxed: underweight: woman HEAD: atraumatic, normocep halic EYES: eomi, [...] lesion s, anicteric PERIPHERAL PULSES: normal BREASTS: Declined, done by GY N MUSCULOSKELETAL: extremities unremark able, no clubbing, cyanosis or edema LYMPH NODES: no enlarged lymph no jorge a,spleen normal RECTAL EXAM: not examinedDone by BANKING SUPERVISOR PSYCH: alert, oriented ORAL CAVITY: normal, unremarkable Consultation Request Notes Referral Date Referring Provider Referred Provider Not josi 11/21/2024 Harvinder Moscoso Allison Evaluate and Treat weakness in left 5th finger
--- NOTE | 2025-01-13 14:36 | MHC.OFFVIS ---
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 States she has concerns regarding her small finger. States it not working properly , she explains her small finger feels weak and has no strength. She is able to make a fist and states her small finger is not curling the way it should be. Denies numbness or tingling in hands. 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 She says this has been present for a few months now. She feels her small figner just doesn't work like the others She denies any numbness, tingling, locking, or catching PFSH Medical History Angioneurotic edema Hypersomnolence LUCILLE (obstructive sleep apnea) Surgical History Hx of cataract surgery History of parathyroid surgery Family History Mother Dementia Father Oral cancer Social History Patient Tobacco Use Status: Former Tobacco user Current occupational status: retired Current occupation: rt handed Review of Systems Const All systems reviewed & are unremarkable except as noted in HPI and below Physical Exam Vital Signs: BMI result Body Mass Index 19.4 Const General: cooperative, healthy appearing and no acute distress Orientation/consciousness: patient oriented x3 HEENT Head: Yes normocephalic and Yes atraumatic Eyes EOM: EOMs intact bilaterally Resp Effort & Inspection: normal respiratory effort and able to speak in complete sentences Cardio Jugular venous distension: no JVD Skin General skin exam: turgor normal Rashes: no rashes Neuro General: patient oriented x3 Extrem Other: Evaluation of Left Upper Extremity: The patient is alert, oriented, and in no acute distress Neuro: Median, Ulnar, Radial nerves motor and sensory intact and sensation is normal to the tips of all digits Vascular: Cap refill brisk ROM: She can actively flex all her fingers to a fist and back into full extension Good ABduction & ADduction, no locking or catching Perhaps Some less strength in holding her left small finger flexed when compared to the right Skin: No lacerations or abrasions. General: No Ecchymosis. No swelling No tenderness No Erythema or evidence of infection. Psych Appearance: grossly normal Affect: normal affect Attitude: cooperative Assessment & Plan Assessment & Plan (1) Weakness of flexor muscle of finger: Code(s): M62.81 - Muscle weakness (generalized) Category: Medical Plan Assessment & Plan: 1. Left small finger weakness, perceived by patient I educated her about this condition I discussed treatment options No operative intervention indicated I ordered OT hand therapy to work on stretching, strengthening, and normalizing function I discussed activity modification, she should work on ROM exercises at home\ She can follow up PRN Scribed for Carolyn Greenwood MD by hCaparro Pino, medical esthetician, on 01/13/25 at 2:45 PM, EST. Orders: Orders OT Evaluation and Treatment Today R29.898 - Other symptoms and signs involving the musculoskeletal system Coding Level of Care Code New Pt Level 3 (72359) Diagnoses Weakness of flexor muscle of finger M62.81
[2025-01-13 14:37] VITALS: BMI 19.4
--- OUTSIDE RECORDS SUMMARY | 2025-01-13 18:25 | XMS_ITS | Patient Health Record ---
Author Organization Harvinder Moscoso III, MD Address [address] [place] [address] Care Team Providers Care Education And Outreach Coordinator Name Role Phone Dr. Harvinder Moscoso III [...] Active Results Component Value Reference Range Notes Complete Blood Count Auto Di ff Reviewed date:05/14/2024 08:54:42 AM Interpretation: Performing Lab:[facility], [address] [place] [id number] Notes/Report: White Blood Count 6.1 4.8-10.8 X10*3/uL Red Blood Count 3.87 4.20-5.50 X10*6/uL Hemoglobin 14.2 12.0-16.0 g/dl Hematocrit 41.6 37.0-47.0 % Mean Corpuscular Volume 107.5 80.0-98.0 fL Mean Corpuscular Hemoglobin 36.7 27.0-33.0 pg Mean Corpuscular HGB Conc 34.1 31.0-35.0 g/dl Red Cell Distribution Width 13.3 11.0-16.0 % Platelet Count 196 160-400 X10*3/uL Mean Platelet Volume 11.2 9.4-12.3 fL Neutrophils Percent Auto 60.4 45-73 % Imm Gran Pct Auto 0.2 0.0-0.4 % Lymphocytes Percent Auto 30.1 20-40 % Monocytes Percent Auto 8.3 2-11 % Eosinophils Percent Auto 0.5 0-4 % Basophils Percent Auto 0.5 0-2 % NRBC Pct Auto 0.0 0.0-0.2 /100WBC Neutrophils Absolute Auto 3.7 2.0-8.3 x10*3/u L Imm Gran Abs Auto 0.01 0.00-0.03 X10*3/uL Lymphocytes Absolute Auto 1.8 1.2-4.9 X10*3/u L Monocytes Absolute Auto 0.5 0.1-1.2 X10*3/uL Eosinophils Absolute Auto 0.0 0.0-0.4 X10*3/u L Basophils Absolute Auto 0.0 0.0-0.2 X10*3/uL NRBC Abs Auto 0.000 0.0-0.012 X10*3/uL RETIC Reviewed date:05/14/2024 08:54:42 AM Interpretation: Performing Lab:[address] [phone] Notes/Report: Reticulocytes Absolute 0.064 0.026-0.095 X10*6/ uL Immature Retic Fraction 11.7 3.0-15.9 % Retic HGB Equivalent 38.4 30.0-35.0 pg Reticulocyte Percent 1.6 0.5-1.8 % Comprehensive Met. Panel Reviewed date:05/14/2024 08:54:42 AM Interpretation: Performing Lab:[address] [id number] Notes/Report: Sodium 138 135-145 mmol/L Potassium 3.4 3.3-5.1 mmol/L Chloride 101 96-108 mmol/L Carbon Dioxide 30 22-29 mmol/L Anion Gap 10 12-20 Blood Urea Nitrogen 23 9-16 mg/dL Creatinine 0.98 0.5-1.4 mg/dL Estimated Glomerular Filt Rate 56 Chronic Kidney Disease: Estimated GFR < 60 mL/min/1.73m2 Severe Kidney Disease: Estimated GFR < 15 mL/min/1.73m2 Glucose Random 90 60-115 mg/dL Calcium 9.3 8.4-10.2 mg/dL Bilirubin Total 0.4 0.0-1.0 mg/dL Aspartate Amino Transferase 62 5-31 U/L Alanine Aminotransferase 60 0-31 U/L Total Protein 7.5 6.5-8.0 g/dL Albumin Level 4.5 3.5-5.0 g/dL Alkaline Phosphatase 74 39-117 U/L Folate Reviewed date:05/14/2024 08:54:42 AM Interpretation: Performing Lab:[facility], [address] [place] [id number] Notes/Report: Folate 19.3 > or = 4.0 ng/mL Reference Values: > or = 4.0 ng/mL < 4.0 ng/mL suggests folate deficiency Methotrexate, aminopterin and folinic acid (leucovorin) are chemotherapeutic agents whose molecular structures are similar to folate; therefore, the [employer] folate assay cannot be used for patients using these drugs. MAMMOGRAM DIGITAL BILATERAL SCREEN Reviewed date:11/21/2024 01:43:11 PM Interpretation:undefined Performing Lab: Notes/Report: undefined Reason For Referral Reason Evaluate and Treat weakness in left 5th finger Diagnosis 1 Stiffness of left villanueva nd, not elsewhere classified (M25.642) Referral Organization Harvinder Moscoso III, MD Referring Provider First Name Harvinder Referring Provider Last Name Blanka Referring Provider Speciality Internal M edicine Referred Provider Carolyn Greenwood Referred Provider Specialty Hand Surgery General Notes D Zeina 11/24/2024 01:55:36 PM > Referral and progress note faxed. Referral Priority Routine Medications Medication SIG (Take, Route, Fr equency, Duration) Notes Start Date End Date Status valACYclovir HCl 500 MG 1 tablet Orally Once a day 05/09/2022 Active Multivitamin - 1 tablet Orally Once a day Active Calcium 1 tab Oral Active Immunizations Vaccine Route Administration Date Status Comme nts Tetanus and Diphtheria Toxoids Adsorbed IM Intramuscular 07/17/2018 Administered PCV13 Unknown 11/06/2018 Administered Influenza no Preserv 3 and > Unknown 10/06/2019 Administered COVID PFIZER Unknown 05/19/2021 Administered Tdap Unknown 08/08/2020 Administered SHINGRIX Unknown 04/04/2018 Administered COVID PFIZER Unknown 11/14/2020 Administered Zostavax Unknown 03/10/2016 Administered PPV 23 Unknown 11/09/2019 Administered COVID PFIZER Unknown 04/18/2020 Administered COVID PFIZER Unknown 11/23/2021 Administered Influenza, quad Unknown 10/17/2018 Administered Influenza High Dose Quadrivalent Unknown 11/05/2022 Administered Influenza High Dose Quadrivalent Unknown 10/22/2021 Administered Influenza High Dose Quadrivalent Unknown 10/17/2020 Administered COVID Pfizer Bivalent Unknown 11/23/2021 Administered COVID-19 Moderna SPIKEVAX Unknown 08/03/2023 Administer ed Comirnaty Pfizer COVID-19 12+ Unknown 11/26/2023 Administered COVID Pfizer Bivalent Unknown 07/14/2022 Administered Fluzone High-Dose (HD-IIV3) Unknown 10/17/2018 Administered Comirnaty Pfizer COVID-19 12+ Unknown 10/30/2024 Administered PCV13 Unknown 11/06/2018 Administered Fluzone High-Dose (HD-IIV3) Unknown 10/22/2024 Administered Fluzone High-Dose (HD-IIV3) Unknown 11/26/2023 Administered COVID-19 Moderna SPIKEVAX Unknown 11/18/2022 Administer ed RSV Adjuvant Unknown 12/27/2022 Administered COVID PFIZER Unknown 03/30/2020 Administered Influenza Unknown 11/19/2014 Pending Social History Tobacco Use: Social History Observation [...] ast year? No Points 0 Interpretation Negative Problems Problem Type SNOMED Code ICD Code Onset Dates Problem Status W/U Status Risk Notes Problem 8199231 Former smoker (Z87.891) Active confirmed She is highly motivated not to smoke and she has a plan for prevention of relapse in times of illness or stress. Problem 158821220 Underweight (R63.6) Active confirmed Her body mass index is now 18. She weighs 117 pounds, which is close to normal for her. He says she feels well. Her weight will be observed. We discussed nutrition at length today. Problem Hypercalcemia (45898892) Hypercalcemia (E83.52) Active confirmed Her calcium has returned to normal with parathyroid surgery. She will continue on replacement. Problem 57013856 Allergic rhinitis, unspecified (J30.9) Active confirmed Her rhinitis villanueva s been stable and well controlled with occasional use a medication. She has had no complaints about this since last spring. Problem Somnolence (517645443) Somnolence (R40.0) Active confirmed He'll continue to sleep during the day. She will have a sleep study assessment as it can be arranged. 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 Problem Chronic fatigue syndrome (82596131) Chronic fatigue (R53.82) Active confirmed Her blood woork shows no anemia. Renal function is normal. She continues to function well and life. Problem 71148089 Other and unspecified hyperlipidemia (E78.5) Active confirmed Her total cholesterol is 240. The HDL is 85 giving her a ratio below 4.0. At this point she does not wish to take a statin medication.Have a significant family history of ischemic heart disease or stroke. Problem 798620081 Chronic insomnia (F51.04) Active confirmed He wondered if medication would help and I suggested either tramadol or an antihistamine. She said she would consider these. In general, her insomnia has improved. Problem 54641152 Obstructive sleep apnea syndrome (G47.33) Active confirmed Treating this disorder has been frustrated by her allergy to latex. She has a sore in the mouth and the floor at the very back of her tongue which is difficult to visualize because of trismus. She is going to have a telephone visit one week to see if this resolves after not using her latex mass for 1 week. Problem Hyperparathyroidi sm (39364228) Hyperparathyroi dism (E21.3) Active confirmed Her calcium is now normal at 9.3. This will be observed carefully. No additional treatment is necessary. Problem 621708745 Macrocytosis (D75.89) Active confirmed The reticulocyt e count and vitamin B12 and folic acid levels are normal. Her mean cell volume was elevated at 108. This is likely due to to some dietary issue or early myelodysplastic syndrome. They will continue to be followed. She is not taking any medication that should causes denies consumption of alcohol. Problem 475749679 Spastic bladder (N32.89) Active confirmed Her bladder function has been satisfactory lately and she is not rising in night urinate much. No change in her regimen is dated today. 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 She has occasional pain with turning her neck but no radiation. Observation continues. Problem Major depression, single episode (14213170) Depression, unspecified depression type (F32.9) Active confirmed There is no sig n of depression on today's visit. Problem Collagenous colitis (01363956) Collagenous colitis (K52.831) Active confirmed The colonoscopy revealed this diagnosis. It is being treated by gastroenterology with fiber and Imodium. Problem Osteoporosis (37630018) Osteoporosis, unspecified (M81.0) Active confirmed She is being treated. A bone density test will be done periodically. Problem 143809173 Abnormal liver function test (R94.5) Active confirmed There is still slight elevation of 2 transaminase enzymes. This will be observed. Vital Signs Heart Rate 78 /min 11/21/2024 Temperature 97.2 degrees Fahrenheit 11/21/2024 Blood pressure diastolic 73 mm Hg 11/21/2024 Height 67 in 11/21/2024 Blood pressure systolic 134 mm Hg 11/21/2024 Weight 118 lbs 11/21/2024 BMI 18.48 kg/m2 11/21/2024 Encounters Encounter Location Date Provider Diagnosis Harvinder Moscoso III, MD [address] [place] [address] [place] [address] 05/20/2024 Harvinder Moscoso Underweight R63.6 ; Hyperparathyroidism E21.3 ; Other and unspecified hyperlipidemia E78.5 ; Macrocytosis D75.89 ; Abnormal liver function test R94.5 and Osteoporosis, unspecified M81.0 Harvinder Moscoso III, MD [address] [place] [address] [address] [place] [address] 11/21/2024 Harvinder Moscoso Macrocytosis D75.89 ; Other and unspecified hyperlipidemia E78.5 ; Former smoker Z87.891 ; Underweight R63.6 ; Allergic rhinitis, unspecified J30.9 ; Spastic bladder N32.89 ; Cervical nerve root impingement G54.2 ; Chronic insomnia F51.04 ; Depression, unspecified depression type F32.9 ; Hyperparathyroidism E21.3 ; Osteoporosis, unspecified M81.0 and Obstructive sleep apnea syndrome G47.33 Harvindre Moscoso III, MD [address] [place] [address] [place] [address] 06/12/2024 Harvinder Moscoso III, MD [address] [place] [address] [place] [address] 08/14/2024 Harvinder Moscoso Assessments Encounter Date Diagnosis (ICD Code) Assessment [...] carefully. No additional treatment is necessary. 11/21/2024 Other and unspecifie d hyperlipidemia (ICD-10 - E78.5) Her total cholesterol is 240. The HDL is 85 giving her a ratio below 4.0. At this point she does not wish to take a statin medication.Have a significant family history of ischemic heart disease or stroke. 11/21/2024 Macrocytosis (ICD-10 - D75.89) The reticulocyte count and vitamin B12 and folic acid levels are normal. Her mean cell volume was elevated at 108. This is likely due to to some dietary issue or early myelodysplastic syndrome. They will continue to be followed. She is not taking any medication that should causes denies consumption of alcohol. 05/20/2024 Other and unspecifie d hyperlipidemia (ICD-10 - E78.5) Her lipids have been stable. No change in her regimen was madee today. 11/21/2024 Former smoker (ICD-1 0 - Z87.891) She is highly motivated not to smoke and she has a plan for prevention of relapse in times of illness or stress. 05/20/2024 Macrocytosis (ICD-10 - D75.89) Her mean cell volume is 107. She has mild elevation of 2 liver function tests. The white blood cell count and platelet count are normal. She has a mild normochromic normocytic anemia with an unremarkable reticulocyte count. This will be observed. It could be early myelodysplasia or an ingested substance 11/21/2024 Underweight (ICD-10 - R63.6) Her body mass index is now 18. She weighs 117 pounds, which is close to normal for her. He says she feels well. Her weight will be observed. We discussed nutrition at length today. 05/20/2024 Abnormal liver funct ion test (ICD-10 - R94.5) There is still slight elevation of 2 transaminase enzymes. This will be observed. 11/21/2024 Allergic rhinitis, unspecified (ICD-10 - J30.9) Her rhinitis has been stable and well controlled with occasional use a medication. She has had no complaints about this since last spring. 05/20/2024 Osteoporosis, unspecified (ICD-10 - M81.0) She is being treated. A bone density test will be done periodically. 11/21/2024 Spastic bladder (ICD -10 - N32.89) [...] mass for 1 week. Plan Of Treatment Pending Test Test Name Order Date URINE DIP STICK 09/05/2021 ELECTROLYTES 01/09/2022 PROFILE, FASTING (COMPREHENSIVE METABOLI C) 05/20/2024 PROFILE, FASTING (COMPREHENSIVE METABOLI C) 11/21/2024 PROFILE, FASTING (COMPREHENSIVE METABOLI C) 08/18/2020 PROFILE, FASTING (COMPREHENSIVE METABOLI C) 01/09/2022 PROFILE, FASTING (COMPREHENSIVE METABOLI C) 09/09/2019 PROFILE, FASTING (COMPREHENSIVE METABOLI C) 11/01/2021 PROFILE, FASTING (COMPREHENSIVE METABOLI C) 07/26/2023 PROFILE, FASTING (COMPREHENSIVE METABOLI C) 09/05/2021 PROFILE, FASTING (COMPREHENSIVE METABOLI C) 12/07/2020 PROFILE, FASTING (COMPREHENSIVE METABOLI C) 08/30/2020 PROFILE, FASTING (COMPREHENSIVE METABOLI C) 08/08/2022 PROFILE, RANDOM (COMPREHENSIVE METABOLIC ) 11/20/2023 PROFILE, RANDOM (COMPREHENSIVE METABOLIC ) 05/09/2022 PROFILE, RANDOM (COMPREHENSIVE METABOLIC ) 02/27/2020 CALCIUM 10/09/2019 CALCIUM 02/27/2020 CALCIUM 08/30/2020 LIPID PANEL 12/07/2020 LIPID PANEL 08/08/2022 LIPID PANEL 08/30/2020 LIPID PANEL 01/09/2022 LIPID PANEL 09/09/2019 GGT 03/08/2020 GGT 01/09/2022 T4 (THYROXINE) 06/30/2020 FREE T4 (FT4) 06/30/2020 TSH (THYROID STIMULATING HORMONE) 2020 VITAMIN B12 AND FOLATE 03/08/2020 CBC w DIFF 01/09/2022 CBC w DIFF 05/20/2024 CBC w DIFF 12/07/2020 CBC w DIFF 02/27/2020 CBC w DIFF 08/08/2022 CBC w DIFF 08/30/2020 CBC w DIFF 11/21/2024 CBC w DIFF 08/18/2020 CBC w DIFF 11/01/2021 CBC w DIFF 09/05/2021 CBC w DIFF 05/09/2022 CBC w DIFF 09/09/2019 SED RATE (ESR) 02/27/2020 HEPATITIS A,B,C PROFILE 03/08/2020 CLOSTRIDIUM DIFF TOXIN A&B (C DIFF) 08/19 URINALYSIS (UA) 07/16/2020 MITOCHONDRIAL AB 03/08/2020 OVA & PARASITES (O&P) 09/04/2022 URINE CULTURE 07/16/2020 ROUTINE CULTURE 04/10/2014 VITAMIN D 25-OH TOTAL 01/09/2022 VITAMIN D 25-OH TOTAL 10/09/2019 VITAMIN D 25-OH TOTAL 02/27/2020 VITAMIN D 25-OH TOTAL 08/30/2020 PARATHYROID HORMONE INTACT 10/09/2019 PARATHYROID HORMONE INTACT 11/01/2021 CBC WITH AUTO DIFF 11/20/2023 CBC WITH AUTO DIFF 07/26/2023 RETIC 05/20/2024 RETIC 11/20/2023 Uric Acid 05/20/2024 Calcium 05/20/2024 Calcium 09/05/2021 Lipid Panel 11/01/2021 Lipid Panel 09/05/2021 Lipid Panel 11/21/2024 Lipid Panel 08/18/2020 Lipid Panel 07/26/2023 Lipid Panel 05/20/2024 Vitamin B12 and Folate 05/20/2024 Vitamin B12 and Folate 01/09/2022 Folate 11/20/2023 Parathyroid Hormone Related Pr Stool Culture 09/04/2022 Parathyroid Hormone Intact 07/26/2023 Next Appt Details Provider Name:Harvinder Moscoso , 11/24/2025 02:00:00 PM, [address] [facility] , [place], [place], [address], Insurance Providers Payer Name Payer Address Payer Phone Subscriber Number Group Number Insured Name Patient Relationship to Insured Coverage Start Date Coverage End Date MEDICARE NGS [address] [place] [phone] [id number] Jess Awad Self - patient is the insured [facility] [address] [place], [place] [id number] Jess Awad Self - patient is the insured Medical (General) History Medical History History ICD Code seasonal allergies history of spastic bladder since [address] Moore [id number] 2001 nerve impingement insomnia lipoma lateral right thoracic chest wall 2013, weight loss 2013 chronic fatigue Surgical History Surgery Date(Month/Year) Colonoscopy 10/25/22 Parathyroidectomy x2 2021-07-04 Excision of 2cm lipoma, right flank 2016
--- OUTSIDE RECORDS SUMMARY | 2025-01-13 18:25 | XMS_ITS | Patient Health Record ---
Author Organization [facility] Address [address] [place] [address] Care Team Providers Care Circuit Clerk Name Role Phone Blanka RUSSO, Harvinder Primary Care Provider Oz Talavera Jr Unavailable [phone] Allergies No Known Allergies Reason For Referral No Information Medications Medication SIG (Take, Route, Frequency, Duration) Notes Start Date End Date Status Dicyclomine HCl 10 MG Capsule 1 tablet O rally 2-4 times a day 11/01/2022 Active valACYclovir HCl 500 MG Tablet TAKE 1 TABLET BY MOUTH THREE TIMES A DAY Orally Once a day Active Escitalopram Oxalate 5 MG Tablet 1 tablet Orally Once a day; Duration: 30 day(s) Active Methylphenidate HCl 10 MG Tablet 1 tablet Orally Once a day Active Immunizations Vaccine Route Administration Date Status Comme nts Influenza Unknown 10/17/2018 Administered Influenza Unknown 12/06/2021 Administered Social History Tobacco Use: Social History Observation Description Date Details (start date - stop date) Never Smoker NA - NA Social History Drugs/Alcohol: Social Info Question Answer Notes Alcohol Screen Did you have a drink containing alcohol in the past year? Yes How often did you have a drink containing alcohol in the past year? 2 to 4 times a month (2 points) How many drinks did you have on a typical day when you were drinking in the past year? 1 or 2 drinks (0 point) How often did you have 6 or more drinks on one occasion in the past year? Never (0 point) Points 2 Interpretation Negative Tobacco Use: Social Info Question Answer Notes Tobacco Use/Smoking Patient is a nonsmoker Additional Details Category Social Info Options Details Miscellaneous: Marital status: single Occupation: retired Problems Problem Type SNOMED Code ICD Code Onset Dates Problem Status W/U Status Risk Notes Problem Abnormal results of liver function studies (454934116) Abnormal results of liver function studies (R94.5) Active confirmed Problem Elevated liver enzymes level (854605605) Elevated LFTs (R79.89) Active confirmed Problem Diarrhea (83803440) Diarrhea, unspecified type (R19.7) Active confirmed Problem Fatigue (74368330) Fatigue, unspecified type (R53.83) Active confirmed Problem Elevated liver enzymes level (767192364) Elevated liver function tests (R94.5) Active confirmed Plan Of Treatment Pending Test Test Name Order Date LIVER PROFILE 09/11/2022 LIVER PROFILE 10/11/2022 CBC w/o DIFF 09/11/2022 US ABD 09/15/2022 TSH REFLEX FREE T4 09/11/2022 Future Test Test Name Order Date COLONOSCOPY 09/21/2022 Insurance Providers Payer Name Payer Address Payer Phone Subscriber Number Group Number Insured Name Patient Relationship to Insured Coverage Start Date Coverage End Date MEDICARE OF [place] [address] [place] [address] [id number] HEMA BLANCO Self - patient is the insured [employer] [address] [place] [address] [phone] [id number] HEMA BLANCO Self - patient is the insured Medical (General) History Medical History History ICD Code spastic bladder HSV infection, left eye sleep apnea Surgical History Surgery Date(Month/Year) cataract-lens implants both eyes
--- OUTSIDE RECORDS SUMMARY | 2025-01-13 18:25 | XMS_ITS | Patient Health Record ---
Author [facility] Address [address] [place] [address] Care Team Providers Care Solar Sales Energy Advisor Name Role Phone Harvinder Moscoso MD Primary Care Provider Unavailab Herb Peterson Unavailable [phone] Allergies Allergen (clinical drug ingredient) Drug/Non Drug Allergy documented on EMR Reaction Allergy Type Onset Date Status Dust Mites Unknown Allergy Active Ragweed Unknown Allergy Active Reason For Referral No Information Medications Medication SIG (Take, Route, Fr equency, Duration) Notes Start Date End Date Status Calcium Active Multivitamin Not-Pedro Pablo ing valACYclovir HCl Act alia Immunizations Vaccine Route Administration Date Status Comme nts Influenza Unknown 12/06/2021 Administered Influenza Unknown 10/21/2023 Administered COVID-19 Pfizer BioNTech Vaccine Unknown 11/25/2021 Administered 1st 03/28/202021 2nd 04/18/202020 Social History Tobacco Use: Social History Observation Description Date Details (start date - stop date) Never Smoker NA - NA Tobacco Use/Smoking Question Answer Notes Are you a: nonsmoker Additional Findings: Tobacco Non-User Current no n-smoker Alcohol Screen Question Answer Notes Did you have a drink contain ing alcohol in the past year? Yes How often did you have a dri nk containing alcohol in the past year? 2 to 3 times a week (3 points) Points 3 Interpretation Positive Tobacco use other than smoking: Question Answer Notes Are you an other tobacco user? No AUDIT-C (Standard) Question Answer Notes Did you have a drink containing alcohol in the p ast year? No Points 0 Interpretation Negative Problems Problem Type SNOMED Code ICD Code Onset Dates Problem Status W/U Status Risk Notes Problem Onychomycosis (963376916) Onychomycosis (B35.1) Active confirmed Vital Signs Blood pressure diastolic 80 mm Hg 10/10/2024 Height 5ft7in in 10/10/2024 Blood pressure systolic 120 mm Hg 10/10/2024 Weight 116 lbs 10/10/2024 BMI 18.17 kg/m2 10/10/2024 Procedures Procedure Date Ordered Date Performed Result Body Sit e 18986-[place] Plate 10/10/2024 N/A Encounters Encounter [facility] Date [facility] [address] 02/29/2024 Herb Daley Onychomycosis B35.1 and Pain in left toe(s) M79.[address] [address] 10/10/2024 Herbrachid Daley Onychomycosis B35.1 ; Pain in left toe(s) M79.675 and Ingrown nail L60.[address] [address] 05/16/2024 Herb Daley [address] [address] 10/21/2024 Herb Daley Assessments Encounter Date Diagnosis (ICD Code) Assessment Notes Treatment Notes Treatment Clinical Notes Section Notes 02/29/2024 Pain in left toe(s) (ICD-10 - M79.675) 02/29/2024 Onychomycosis (ICD-10 - B35.1) 10/10/2024 Pain in left toe(s) (ICD-10 - M79.675) 10/10/2024 Onychomycosis (ICD-10 - B35.1) 10/10/2024 Ingrown nail (ICD-10 - L60.0) Plan Of Treatment Pending Test Test Name Order Date 89830-Bxnkznpb Plate 08/29/2012 88691-Iudgszem Plate 03/12/2013 14307-Goiogxks Plate 05/26/2013 54193-Apscsfeb Plate 12/25/2013 34731-Gyspejqa Plate 04/09/2014 50034-Epycjenb Plate 10/10/2024 18455-Mcibwckb Plate 10/05/2011 74421-Ccpeepeg Plate 12/05/2011 23744- Debride <25 sq cm 12/20/2011 67409- Removal of Foreign Body, Subcut 0 05/05/2011 Insurance Providers Payer Name Payer Address Payer Phone Subscriber Number Group Number Insured Name Patient Relationship to Insured Coverage Start Date Coverage End Date Medicare National [employer]t S[employer] [address] [place] [address] [id number] Jess Awad Self - patient is the insured [employer] [address] [place] [address] [id number] Jess Awad Self - patient is the insured Medical (General) History Medical History History ICD Code cataracts chicken pox measles Surgical History Surgery Date(Month/Year) cataract surgery TYRESE 08/2002
--- OUTSIDE RECORDS SUMMARY | 2025-01-13 18:25 | XMS_ITS | Continuity of Care Document ---
Author Organization [facility] Address [address] [place] [address] Phone [phone] Social History Type Date Description Comments Sex Female Sex Unknown Medical Devices Description No Information Available Encounters Description No Information Available Assessments Description No Information Available Plan of Treatment No Information Available Functional Status Description No Information Available Mental Status Description No Information Available Referrals Description No Information Available
== END 2025-01-13 14:57 | disposition home or self-care (01) ==
LOC: HO.HOS 14:32
PROVIDERS: PCP Internal Medicine Medical Oncology; Visit Provider Orthopaedic Surgery
DX: M62.81 Muscle weakness (generalized) (principal)
CPT/HCPCS: 99203

== ENCOUNTER → 2025-01-13 14:31 | Outpatient (BNVA) | payer MEDICARE, SELFPAY | PROVIDERS: PCP Internal Medicine Medical Oncology; Visit Provider Orthopaedic Surgery | DX: M62.81 Muscle weakness (generalized) (principal) | CPT/HCPCS: 99202 ==